=== PATIENT | female | born 2000 | race Caucasian/White ===

== ENCOUNTER 2018-01-17 19:07 | Outpatient (CLI) | payer OTHER, MEDICAID, SELFPAY ==
[2018-01-17 19:50] VITALS: BMI 54.1
[2018-01-17 20:04] LABS: Bacteria 0 SEEN /hpf (None Seen); Mucous, Urine 0 SEEN /hpf (<or=2+); Red Blood Cells-Urine 0 SEEN /hpf (0-5)
[2018-01-17 20:05] LABS: Color, Urine Yellow (Yellow); Glucose, Dipstick Normal (Normal); Ketone-Dipstick Negative (Negative); Leukocyte Esterase-Dipstick 100 /ul (Negative); Nitrite-Dipstick Negative (Negative); Occult Blood-Urine Negative /ul (Negative); Protein-Dipstick Negative (Negative); Specific Gravity, Urine 1.015 (1.002-1.030); Urine Bilirubin Dipstick Negative (Negative); Urine Clarity Sl. Cloudy (Clear); Urine Urobilinogen Normal (Normal); Urine pH 6.5 (5.0 - 8.0)
[2018-01-17 20:11] LABS: Squamous Epithelial Cells - UA 0-5 SEEN /hpf (5-10)
[2018-01-17 20:12] LABS: White Blood Cells 0-5 SEEN /hpf (0-5)
--- NOTE | 2018-01-17 21:28 | OB.TRI.NOTE ---
History of Present Illness Date of Service: 01/17/18 Was patient seen by the physician?: Yes Reason For Visit: CRAMPING IN BACK & FRONT Date of Service: 01/17/18 Final VIGNESH: 05/11/18 Final VIGNESH Source: US <20 weeks Gestational age: 23 Weeks and 5 Days History of Present Illness: Patient was working all day on feet at her job at [employer] today. Patient reports a hx of early miscarriage in the past and she felt nervous when she started to have irregular cramps/contractions. Patient unable to time the cramps; denies dysuria and pain. Patient denies any vaginal bleeding, denies any vaginal discharge. Reports +FM. Allergies amoxicillin [Amoxicillin] Allergy (Verified 06/10/17 00:59) Rash - Pertinent Past Medical History Pertinent Past Medical History: Noncontributory Physical Exam Vitals: See nursing notes for vital signs - VSS, afebrile UA unremarkable General: Alert, Oriented x3, No apparent distress HEENT: Atraumatic, Normocephalic. 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 Negative for: Vulvar lesions Estimated gestational size: Appropriate for gestational size Presentation: Cephalic Cervix Dilation (cm): 0 Station: -3 Effacement (%): 0 NST - FHR Rate Baby A Baseline: 150 Variability:: Moderate Accelerations:: 10 x 10 Decelerations:: None NST Reactive:: Appropriate for gestational age FHR Category:: Category I Uterine Activity:: None noted on tocometer or palpable Impression/Plan 17 y/o @ 23.5 wks, Contractions - PTL ruled out, Cramping likely d/t dehydration P: 1) Discharge to home 2) PTL precautions reviewed 3) Push PO fluids 4) F/u with OB providers as scheduled. Flower Parada APRN-JACK
--- NOTE | 2018-01-17 21:34 | OB.TRI.HP_ITS ---
History of Present Illness Date of Service: 01/17/18 Was patient seen by the physician?: Yes Reason For Visit: CRAMPING IN BACK & FRONT Date of Service: 01/17/18 Final VIGNESH: 05/11/18 Final VIGNESH Source: US <20 weeks Gestational age: 23 Weeks and 5 Days History of Present Illness: Patient was working all day on feet at her job at [employer] today. Patient reports a hx of early miscarriage in the past and she felt nervous when she started to have irregular cramps/contractions. Patient unable to time the cramps ; denies dysuria and pain. Patient denies any vaginal bleeding, denies any vaginal discharge. Reports +FM. Allergies amoxicillin [Amoxicillin] Allergy (Verified 06/10/17 00:59) Rash - Pertinent Past Medical History Pertinent Past Medical History: Noncontributory Physical Exam Vitals: See nursing notes for vital signs - VSS, afebrile UA unremarkable General: Alert, Oriented x3, No apparent distress HEENT: Atraumatic, Normocephalic. 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 Negative for: Vulvar lesions Estimated gestational size: Appropriate for gestational size Presentation: Cephalic Cervix Dilation (cm): 0 Station: -3 Effacement (%): 0 NST - FHR Rate Baby A Baseline: 150 Variability:: Moderate Accelerations:: 10 x 10 Decelerations:: None NST Reactive:: Appropriate for gestational age FHR Category:: Category I Uterine Activity:: None noted on tocometer or palpable Impression/Plan 17 y/o @ 23.5 wks, Contractions - PTL ruled out, Cramping likely d/t dehydration P: 1) Discharge to home 2) PTL precautions reviewed 3) Push PO fluids 4) F/u with OB providers as scheduled. Flower Parada APRN-JACK
== END 2018-01-17 20:24 | disposition home or self-care (01) ==
LOC: WPOUT 19:11 → WP 19:11
PROVIDERS: Family Provider Pediatrics; PCP Pediatrics; Visit Provider Obstetrics & Gynecology
DX: O26.892 Other specified pregnancy related conditions, second trimester (principal); Z3A.23 23 weeks gestation of pregnancy
CPT/HCPCS: 59050; 81001; 99218; G0378

== ENCOUNTER 2018-04-27 22:45 | Outpatient (CLI) | payer OTHER, MEDICAID, SELFPAY ==
[2018-04-27 23:20] VITALS: BMI 28.6
[2018-04-27 23:38] LABS: Color, Urine Straw (Yellow); Glucose, Dipstick Normal (Normal); Ketone-Dipstick Negative (Negative); Leukocyte Esterase-Dipstick 100 /ul (Negative); Nitrite-Dipstick Negative (Negative); Occult Blood-Urine Negative /ul (Negative); Protein-Dipstick 15 mg/dl (Negative); Specific Gravity, Urine 1.005 (1.002-1.030); Urine Bilirubin Dipstick Negative (Negative); Urine Clarity Clear (Clear); Urine Urobilinogen Normal (Normal)
--- NOTE | 2018-05-15 12:52 | OB.TRI.PN_ITS ---
Progress Notes Date of Service: 04/27/18 Progress Note: Diagnosis: Rule out labor. Patient's cervix was unchanged and she was discharged home as she was not in labor. NST reactive. Laboratory Studies: Laboratory Tests 04/27/18 Range/Units 23:15 Urine Color Straw (Yellow) Urine Clarity Clear (Clear) Urine pH 7.0 (5.0 - 8.0) Ur Specific Cooper 1.005 (1.002-1.030) Urine Protein 15 H (Negative) mg/dl Urine Glucose (UA) Normal (Normal) mg/dl Urine Ketones Negative (Negative) mg/dl Urine Occult Blood Negative (Negative) /ul Urine Nitrite Negative (Negative) Urine Bilirubin Negative (Negative) mg/dL Urine Urobilinogen Normal (Normal) mg/dl Ur Leukocyte Esterase 100 H (Negative) /ul
== END 2018-04-28 00:40 | disposition home or self-care (01) ==
LOC: WPOUT 23:15 → WP 23:16
PROVIDERS: Family Provider Pediatrics; PCP Pediatrics; Visit Provider Obstetrics & Gynecology
DX: Z34.90 Encounter for supervision of normal pregnancy, unspecified, unspecified trimester (principal)
CPT/HCPCS: 59025; 59050; 81002; 87086; 87088; 99218; G0378

== ENCOUNTER 2018-05-10 10:35 | Inpatient (IN) | payer OTHER, MEDICAID, SELFPAY ==
[2018-05-10 10:56] VITALS: BMI 29.0
[2018-05-10] MEDS: Ondansetron 4 MG/2 ML Vial IV (11:14)
[2018-05-10] MEDS: Nalbuphine 10 MG/ML Ampul IV (11:14)
[2018-05-10] MEDS: Lactated Ringers 1,000 ML 50 ML IV ×4 (11:16→22:10)
[2018-05-10 11:24] LABS: Hematocrit 33.2 % (37-47); Hemoglobin 10.3 g/dl (12.0-15.0); Mean Corpuscular Hgb 24.8 pg (27.0-32.0); Mean Corpuscular Volume 79.8 fL (81-99); Mean Platelet Vol. 11.8 fl (6.2-12.0); Platelet Count 202 K/mm3 (150-450); RBC Distribution Width CV 17.1 % (11.6-14.6); RBC Distribution Width SD 47.4 fl (35.1-43.9); Red Blood Count 4.16 M/mm3 (4.2-5.4); White Blood Count 8.7 K/mm3 (4.4-11.0)
[2018-05-10 11:25] LABS: Scan Indicated on CBC? Y/N NO
[2018-05-10 11:30] LABS: International Normalized Ratio 0.9; Prothrombin Time (Protime)PT. 12.5 SECONDS (11.7-14.9)
[2018-05-10 11:31] LABS: Partial Thromboplast Time 26.9 Seconds (24.1-36.2)
[2018-05-10] MEDS: fentaNYL-bupivacaine (epidural) 100 ML BAG EPIDURAL ×3 (12:00→22:05)
--- NOTE | 2018-05-10 12:34 | PCM.HP.OB ---
History Date of Admission: 05/10/18 Final VIGNESH: 05/11/18 Final VIGNESH Source: US <20 weeks Gestational age: 39 Weeks and 6 Days History of this : This is a 17 year-old, @ 39.6 weeks gestation with SROM at home- 9am on 05/10/18. pt reports contractions. pt offers no other concerns today. pt has had PNC with [facility] since early first trimester. Allergies amoxicillin [Amoxicillin] Allergy (Verified 01/18/18 08:07) Rash Home Medications: Home Medications Vits [Prenatabs FA] 1 tablet PO DAILY 05/10/18 Smoking Status: Former smoker Alcohol: None Number of Fetus(es): 1 Heart Tracin moderate variability, + accels no decels TOCO Analysis: q2-4min History Past Pregnancies: Past Pregnancies Delivery Date Name GA/Weeks Outcome Route Weight Gender Labor Length Anesthesia Delivery Location Provider FOB Labs: O-, hiv neg, hep b neg, rub imm, syphilis neg, GBS neg Expected Delivery Method: Spontaneous Vaginal Review of Systems Constitutional: Denies: Anorexia Cardiovascular: Denies: Chest Pain Respiratory: Denies: Cough Physical Exam General: Alert, Oriented x3 Abdomen: Soft, Non Tender, Gravid Neurological: Cranial nerves II-XII grossly intact GUN FERTILIZER: Normal external genitalia Estimated gestational size: Appropriate for gestational size Presentation: Cephalic Cervix Dilation (cm): 4.5 Station: -2 Effacement (%): 90 Assessment/Plan This is a 17 year-old, @ 39.6 wks, SROM at home in labor 1) admit to L&D 2) monitor FHR/TOCO 3) Epidural for pain mgmt 4) IFM/IUPC placed 5) Anticipate
--- NOTE | 2018-05-10 12:38 | HP.PCM_ITS ---
History Date of Admission: 05/10/18 Final VIGNESH: 05/11/18 Final VIGNESH Source: US <20 weeks Gestational age: 39 Weeks and 6 Days History of this : This is a 17 year-old, @ 39.6 weeks gestation with SROM at home- 9am on 05/10/18. pt reports contractions. pt offers no other concerns today. pt has had PNC with [facility] since early first trimester. Allergies amoxicillin [Amoxicillin] Allergy (Verified 01/18/18 08:07) Rash Home Medications: Home Medications Vits [Prenatabs FA] 1 tablet PO DAILY 05/10/18 Smoking Status: Former smoker Alcohol: None Number of Fetus(es): 1 Heart Tracin moderate variability, + accels no decels TOCO Analysis: q2-4min History Past Pregnancies: Past Pregnancies Delivery Date Name GA/Weeks Outcome Route Weight Gender Labor Length Anesthesia Delivery Location Provider FOB Labs: O-, hiv neg, hep b neg, rub imm, syphilis neg, GBS neg Expected Delivery Method: Spontaneous Vaginal Review of Systems Constitutional: Denies: Anorexia Cardiovascular: Denies: Chest Pain Respiratory: Denies: Cough Physical Exam General: Alert, Oriented x3 Abdomen: Soft, Non Tender, Gravid Neurological: Cranial nerves II-XII grossly intact 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
[2018-05-10] MEDS: Oxytocin 30 units/NS 500 ml 30 UNITS/500 ML IV.SOLN IV (16:42)
--- NOTE | 2018-05-10 17:48 | PCM.PN.BLA ---
Progress Note pt examined at bedside, AL/100/0 . continue pitocin at this time. Anticipate . pt is comfortable with epidural in place.
[2018-05-10] MEDS: Oxytocin 30 units/NS 500 ml 30 UNITS/500 ML IV.SOLN 334 UNITS IV (23:11)
--- NOTE | 2018-05-10 23:32 | PCM.OB.VAG ---
Vaginal Delivery Maternal Presentation: Active Labor, Spontaneous Rupture of Membranes Amniotic Membrane Rupture Type: Spontaneous at home Amniotic Fluid Description: Clear Final VIGNESH: 05/11/18 Gestational age: 39 Weeks and 6 Days Date of Procedure: 05/10/18 Pre-Operative Diagnosis: term gestation, spontaneous ROM, active labor Post-Operative Diagnosis: live male infant born Surgery/ Procedure Performed: Spontaneous Vaginal Delivery Type of Anesthesia: Epidural Description of Procedure: of live male born without complications. delivered with good maternal effort, gentle downward traction placed for delivery of anterior shoulder. Delayed cord clamping performed. Presentation: Vertex Placental Delivery Description: Spontaneous Placenta Disposition: [facility] Cord Vessel Description: 3 Vessels Nuchal Cord Compression: Without compression Cord Entanglement: None Drain: Post to straight drain Estimated Blood Loss: 400 A gender: Male (1 minute): 8 (5 minute): 9 Episiotomy Description: None Laceration: Vaginal Extension/lac - bilateral vaginal 2nd degree lacerations- repaired with 2-0 vicryl, 2nd degree Medications given after delivery: IV Pitocin Complications: None
[2018-05-10] MEDS: Oxytocin 30 units/NS 500 ml 30 UNITS/500 ML IV.SOLN 167 UNITS IV (23:45)
[2018-05-11] MEDS: Ibuprofen 600 MG Tablet PO ×3 (01:11→20:11)
[2018-05-11 04:00] VITALS: BP 111/68; PULSE 70; RESP 18; TEMP 36.2; O2SAT 98
--- NOTE | 2018-05-11 07:56 | PCM.PN.OB ---
Subjective: pt seen at bedside, doing well. pt still with stoll in place due to vaginal swelling. pt reports pain improvement but still sore. Mild lochia. breast feeding. denies other concerns at this time. - Physical Exam General: Alert, Oriented x3 Abdomen: Soft, Non Tender, Non-Distended, - - fundus firm Vital Signs Temp Pulse Resp BP Pulse Ox 97.1 F L 70 18 111/68 98 05/11/18 04:00 05/11/18 04:00 05/11/18 04:00 05/11/18 04:00 05/11/18 04:00 Oxygen Delivery Method Room Air Weight: 74.4 kg Body Mass Index (BMI) 29.0 Intake and Output for Last 24 Hours 05/09/18 05/10/18 05/11/18 23:59 23:59 23:59 Output Total 900 / 900 Balance -900 / -900 Laboratory Tests Past 24 Hrs 05/10/18 05/10/18 05/10/18 11:00 11:00 11:00 WBC 8.7 RBC 4.16 L Hgb 10.3 L Hct 33.2 L MCV 79.8 L MCH 24.8 L MCHC 31.0 L RDW 17.1 H RDW Differential 47.4 H Plt Count 202 MPV 11.8 PT 12.5 INR 0.9 APTT 26.9 Blood Type O NEGATIVE Antibody Screen NEGATIVE Medical Necessity - Tobacco Use Smoking Status: Former smoker Assessment/Plan PPD#1, doing well routine care pain mgmt dc stoll
--- NOTE | 2018-05-11 07:59 | PCM.DCVAG ---
Discharge Diet: No Restrictions Discharge Activity: Return to Normal Activity, May not drive while taking narcotic pain medications., May Shower May resume sexual activity in: 4-6 weeks Additional Activity Instructions:: Nothing in the vagina for 4-6 weeks. You may return to work/school in 6 weeks. Call your doctor if your incision/area has: Continuous Slow Oozing, Sudden Increased Bleeding, Increased Pain/ Swelling, Increased Redness, Foul Smelling Discharge Additional Instructions: If you experience any of the following, contact your healthcare provider. Bleeding that soaks a pad every hour for 2 hours Fever 100.4 or higher Unrelieved incision or abdominal pain Swelling, redness, discharge or bleeding from your incision or episiotomy site Your incision begins to separate Problems urinating (including inability to urinate or burning while urinating). Visual changes Severe headache Flu-like symptoms Pain or redness in one of both of your breasts Pain, warmth, tenderness or swelling in your legs, especially the calf area Frequent nausea and vomiting Symptoms of depression or anxiety If you experience any of the following, call 911 or go to the nearest Emergency Room. Chest pain Problems breathing Seizure activity Partial or complete paralysis of a body part, slurred speech, weakness or drooping of the face, or a sudden inability to walk or hold your balance Allergies/Adverse Reactions: Allergies amoxicillin [Amoxicillin] Allergy (Verified 01/18/18 08:07) Rash Medications to take at Discharge Vits [Prenatabs FA ] 1 tablet PO DAILY 05/10/18 Ibuprofen 600 mg PO 4X/DAY PRN PRN #30 tablet 05/11/18 The following prescriptions were given: Ibuprofen 600 mg PO 4X/DAY PRN PRN #30 tablet PRN Reason: Pain When: Call to make an appointment with your doctor in 6 weeks. If you had elevated Blood Pressure or 4th degree laceration you will need to be seen in 2 weeks. Primary Care Physician: Apryl lGez MD [Primary Care Provider] - Test Results: Test results from this visit will be discussed in further detail at your follow-up appointment, if applicable.
--- NOTE | 2018-05-11 08:00 | DCINST_ITS ---
Addendum entered and electronically signed by Flower Parada CNM 05/12/18 09:54: Patient can come to [facility] for 2 week check-up if needed - she can schedule with Veronica Parada CNM or Kashmir Adan CNM Original Note: Discharge Diet: No Restrictions Discharge Activity: Return to Normal Activity, May not drive while taking narcotic pain medications., May Shower May resume sexual activity in: 4-6 weeks Additional Activity Instructions:: Nothing in the vagina for 4-6 weeks. You may return to work/school in 6 weeks. Call your doctor if your incision/area has: Continuous Slow Oozing, Sudden Increased Bleeding, Increased Pain/ Swelling, Increased Redness, Foul Smelling Discharge Additional Instructions: If you experience any of the following, contact your healthcare provider. * Bleeding that soaks a pad every hour for 2 hours * Fever 100.4 or higher * Unrelieved incision or abdominal pain * Swelling, redness, discharge or bleeding from your incision or episiotomy site * Your incision begins to separate * Problems urinating (including inability to urinate or burning while urinating). * Visual changes * Severe headache * Flu-like symptoms * Pain or redness in one of both of your breasts * Pain, warmth, tenderness or swelling in your legs, especially the calf area * Frequent nausea and vomiting * Symptoms of depression or anxiety If you experience any of the following, call 911 or go to the nearest Emergency Room. * Chest pain * Problems breathing * Seizure activity * Partial or complete paralysis of a body part, slurred speech, weakness or drooping of the face, or a sudden inability to walk or hold your balance Allergies/Adverse Reactions: Allergies amoxicillin [Amoxicillin] Allergy (Verified 01/18/18 08:07) Rash Medications to take at Discharge Vits [Prenatabs FA ] 1 tablet PO DAILY 05/10/18 Ibuprofen 600 mg PO 4X/DAY PRN PRN #30 tablet 05/11/18 The following prescriptions were given: Ibuprofen 600 mg PO 4X/DAY PRN PRN #30 tablet PRN Reason: Pain When: Call to make an appointment with your doctor in 6 weeks. If you had elevated Blood Pressure or 4th degree laceration you will need to be seen in 2 weeks. Primary Care Physician: Apryl Glez MD [Primary Care Provider] - Test Results: Test results from this visit will be discussed in further detail at your follow- up appointment, if applicable.
[2018-05-11 14:00] VITALS: BP 125/72; PULSE 74; RESP 16; TEMP 36.4; O2SAT 98
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
[2018-05-11 20:13] VITALS: BP 119/71; PULSE 72; RESP 16; TEMP 36.8
--- NOTE | 2018-05-11 20:46 | NURSING ---
At 2009 as this RN entering room, yelling was audible through door. As soon as this RN opened door, yelling stopped. This RN asked patient and family if everything was okay and pt said that it was, that the visitor (Mika) was just getting on her nerves. This RN then medicated pt and began assessment. During this time, Mika was holding the infant and stated seriously if you want him to just disappear, I can make that happen. Both patient and support person said no. Mika then stated Not him (indicating baby) and indicated that he was talking about the father of the baby. Patient then stated just ignore him to this RN.
[2018-05-12 02:00] VITALS: BP 114/74; PULSE 61; RESP 16; TEMP 36.5
--- NOTE | 2018-05-12 10:02 | PN.OBGYN_ITS ---
Subjective: Patient is sitting up in bed at this time; denies any issues or complaints today. Patient denies issues with ambulation or urination. Patient denies SMITH, dizziness or scotoma. Patient bottlefeeding formula, stopped due to infant having difficulty with latching. Patient is satisfied with bottlefeeding method. Desiring discharge to home today. Objective: VSS, Afebrile Nipples without cracks or blisters Abdomen NT x 4 quadrants, FF midline 3FB below umbilicus +2/4 reflexes in LE, no edema, no calf tenderness in LE Scant rubra lochia, perineum well approximated - Physical Exam General: Alert, Oriented x3, Cooperative HEENT: Atraumatic, Normocephalic Neck: Supple Lungs: Normal air movement Cardiovascular: Regular rate, No murmurs Abdomen: Soft, Non Tender Extremities: No edema, Capillary Refill Less than 3 Seconds Skin: No rashes, No breakdown Musculoskeletal: No Tenderness to Palpation of Joints or Extremities Neurological: Cranial nerves II-XII grossly intact Psych/Mental Status: Normal Affect, Appropriate Vital Signs Temp Pulse Resp BP Pulse Ox 97.7 F L 61 16 114/74 98 05/12/18 02:00 05/12/18 02:00 05/12/18 02:00 05/12/18 02:00 05/11/18 14:00 Oxygen Delivery Method Room Air Weight: 164 lb 0.383 oz Body Mass Index (BMI) 29.0 Intake and Output for Last 24 Hours 05/10/18 05/11/18 05/12/18 23:59 23:59 23:59 Output Total 900 / 900 Balance -900 / -900 Medical Necessity - Tobacco Use Smoking Status: Former smoker Assessment/Plan 17 y/o now, s/p without complication, PPD #2, Normal PP Course P: 1) Discharge patient to home pending discharge 2) Anticipatory discharge teaching done 3) RTC at 2 and 6 week PP to [facility] Flower REINA
--- NOTE | 2018-05-15 09:53 | CASEMGMT ---
Social Work Labor and Delivery [employer] referral submitted via [facility]'s secure web based system for [employer]. -BIRGIT Mejia, ONLINE ACTIVIST
== END 2018-05-12 12:05 | disposition home or self-care (01) | DRG 807 ==
PROVIDERS: Admitting Provider Obstetrics & Gynecology; Family Provider Pediatrics; PCP Pediatrics; Referring Provider Obstetrics & Gynecology; Visit Provider Obstetrics & Gynecology
DX: O70.1 Second degree perineal laceration during delivery (principal); Z87.891 Personal history of nicotine dependence; Z3A.39 39 weeks gestation of pregnancy; Z37.0 Single live birth
CPT/HCPCS: 59025; 59050; 85027; 85461; 85610; 85730; 86850; 86900; 90384; 99218; J7120; G0378; J2405; J2790

== ENCOUNTER 2018-08-24 21:43 | Emergency (ER) | payer OTHER, SELFPAY ==
[2018-08-24 21:44] VITALS: BP 116/68; PULSE 83; RESP 16; TEMP 36.3; O2SAT 99; BMI 24.9
[2018-08-24 21:53] VITALS: BP 116/61; PULSE 66; RESP 16; O2SAT 100
--- NOTE | 2018-08-24 22:06 | EKG12_ITS ---
Test Reason : CHEST PAIN Blood Pressure : / mmHG Vent. Rate : 068 BPM Atrial Rate : 068 BPM P-R Int : 126 ms QRS Dur : 092 ms QT Int : 402 ms P-R-T Axes : 043 069 044 degrees QTc Int : 427 ms Normal sinus rhythm Normal ECG Confirmed by JOSE JOVEL MD ([id number]), deputy editor in chief ANIBAL JORGE ([id number] on 08/29/2018 1:27:39 PM Referred By: SHAISTA Confirmed By:JOSE JOVEL MD
[2018-08-24] MEDS: Ketorolac 30 MG/ML Syringe IV (22:16)
[2018-08-24 22:17] LABS: Absolute Lymphocyte Count 2.32 X10^3/ul (0.83-4.51); Absolute Neutrophil Count 2.5 X10^3/uL (2.0-7.7); Basophil# 0.01 X10^3/uL; Basophil% 0.2 % (0-1); Eosinophil# 0.03 X10^3/uL; Eosinophils% 0.6 % (0-5); Hemoglobin 11.3 g/dl (12.0-15.0); Lymphocyte # 2.32 X10^3/ul (4.0); Lymphocyte % 44.1 % (19-41); Mean Corp Hgb Conc 31.4 g/gl (32-36); Mean Corpuscular Hgb 24.9 pg (27.0-32.0); Mean Corpuscular Volume 79.5 fL (81-99); Mean Platelet Vol. 9.6 fl (6.2-12.0); Monocyte# 0.43 X10^3/uL; Monocyte% 8.2 % (0-10); Neutrophil # 2.47 X10^3/uL (2.7-7.7); Neutrophil % 46.9 % (47-70); Platelet Count 295 K/mm3 (150-450); RBC Distribution Width CV 14.5 % (11.6-14.6); RBC Distribution Width SD 41.8 fl (35.1-43.9); Red Blood Count 4.53 M/mm3 (4.2-5.4); White Blood Count 5.3 K/mm3 (4.4-11.0)
[2018-08-24 22:18] VITALS: O2SAT 100
[2018-08-24 22:24] LABS: POSITIVE COUNT NO; POSITIVE DIFFERENTIAL NO; POSITIVE MORPHOLOGY NO
[2018-08-24 22:29] LABS: Anion Gap 8 (5-15); BUN 5 mg/dL (7-18); BUN/Creat Ratio 6.5 RATIO (10-20); Calcium,Total 8.6 mg/dL (8.5-10.1); Chloride 107 mmol/L (98-107); Creatinine, Serum 0.77 mg/dL (0.55-1.02); D-Dimer Quantitative (DVT/PE) 0.31 FEU/ug/m (0.27-0.49); EST Glomerular Filtration Rate 101 mL/min (>60); Est Glom Filt Rate - Afr Amer 122 mL/min (>60); Estimated Creatinine Clearance 101.48 ml/min; Glucose 86 mg/dL (74-106); Potassium 3.6 mmol/L (3.5-5.1); Sodium Level 141 mmol/L (136-145)
[2018-08-24 22:35] LABS: Pregnancy, Serum, hCG Quali. NEGATIVE Negative (0-9 Nonpreg)
--- NOTE | 2018-08-24 22:51 | RAD_ITS ---
STUDY: X-RAY CHEST REASON FOR EXAM: Female, 17 years old. Cough, shortness of breath and chest pain for one day TECHNIQUE: 2 views COMPARISON: None. FINDINGS: Negative for pneumothorax, pneumomediastinum or subcutaneous emphysema. Generalized hyperexpansion without consolidation, focal atelectasis or pleural effusion. There is no demonstrated pleural abnormality. Normal size heart. Normal mediastinum and guillermina. Normal visualized pulmonary arteries. Normal visualized aortic arch and descending thoracic aorta. Normal visualized thoracic spine. Normal visualized ribs, clavicles, and shoulders. There is no demonstrated abnormality of the visualized soft tissue structures of the upper abdomen. RAD/Chest PA and Lateral IMPRESSION: Hyperexpansion without other acute cardiopulmonary findings. Electronically Signed: Ele Lovett MD at 23:41 EST , Service support ,
--- NOTE | 2018-08-24 23:43 | ED.VISSUMM ---
- ER Visit Summary Date of Service: 08/24/18 Chief Complaint: Chest pain History of Present Illness: The patient is a 17 F sudden chest pain at work midsternal stress 6 PM. Pain with deep breath. No cough. No recent travel, surgeries, or immobilizations. No history of PE or DVT. Patient does take oral contraceptives. No tobacco history. No family history of sudden . Patient no past medical history. No previous similar symptoms in the past. Denies any recent illness. No other complaints. Physical Examination: General: Alert and oriented ?3, no acute distress HEENT: Normocephalic, atraumatic. Moist mucosa membranes Neck: supple, nontender. Cardiovascular: Regular rate and rhythm, no murmurs Respiratory: Normal breath sounds, symmetric, no distress Abdomen: Soft, nontender, nondistended Extremities: Nontender, no edema, pulses intact ?4 Neuro: no focal neurological deficits. Test Results: EKG sinus rate of 68, no ST or T wave changes. Hemoglobin 11.3. Creatinine 0.77. HCG negative. D-dimer 0.31. Emergency Department Course and Treatment: Patient atypical symptoms EKG normal. Patient's PERC criteria was negative, however she complained of pain with deep breath. Low risk Wells criteria, d-dimer obtained also negative. Given Toradol improvement of symptoms chest x-ray was negative. Discussed using Motrin as needed. Follow-up with PCP. Signs and symptoms discussed return. All questions were answered. Treatment Plan: [] Disposition: Discharge Impression: 1. Atypical chest pain This note was generated with [employer] dictation software. It may contain incorrect words, spelling, and punctuation that were not noted in review of the chart prior to signing ED Disposition - Plan for ED Patient: Disposition: Home or Assisted Living Diagnosis: Atypical chest pain Instructions: ED Chest Pain Atypical Unkn Cause Referrals: Apryl Glez MD [Primary Care Provider] - 3-5 Days if not improving
--- NOTE | 2018-08-24 23:47 | ED.DCSUM_ITS ---
- ER Visit Summary Date of Service: 08/24/18 Chief Complaint: Chest pain History of Present Illness: The patient is a 17 F sudden chest pain at work midsternal stress 6 PM. Pain with deep breath. No cough. No recent travel, surgeries, or immobilizations. No history of PE or DVT. Patient does take oral contraceptives. No tobacco history. No family history of sudden . Patient no past medical history. No previous similar symptoms in the past. Denies any recent illness. No other complaints. Physical Examination: General: Alert and oriented ?3, no acute distress HEENT: Normocephalic, atraumatic. Moist mucosa membranes Neck: supple, nontender. Cardiovascular: Regular rate and rhythm, no murmurs Respiratory: Normal breath sounds, symmetric, no distress Abdomen: Soft, nontender, nondistended Extremities: Nontender, no edema, pulses intact ?4 Neuro: no focal neurological deficits. Test Results: EKG sinus rate of 68, no ST or T wave changes. Hemoglobin 11.3. Creatinine 0.77. HCG negative. D-dimer 0.31. Emergency Department Course and Treatment: Patient atypical symptoms EKG normal. Patient's PERC criteria was negative, however she complained of pain with deep breath. Low risk Wells criteria, d-dimer obtained also negative. Given Toradol improvement of symptoms chest x-ray was negative. Discussed using Motrin as needed. Follow-up with PCP. Signs and symptoms discussed return. All q uestions were answered. Treatment Plan: [] Disposition: Discharge Impression: 1. Atypical chest pain This note was generated with [employer] dictation software. It may contain incorrect words, spelling, and punctuation that were not noted in review of the chart prior to signing ED Disposition - Plan for ED Patient: Disposition: Home or Assisted Living Diagnosis: Atypical chest pain Instructions: ED Chest Pain Atypical Unkn Cause Referrals: Apryl Glez MD [Primary Care Provider] - 3-5 Days if not improving
[2018-08-24 23:56] VITALS: BP 116/75; PULSE 72; RESP 16; O2SAT 96
== END 2018-08-24 23:59 | disposition home or self-care (01) ==
PROVIDERS: Emergency Provider Emergency Medicine; Family Provider Pediatrics; PCP Pediatrics
DX: R07.89 Other chest pain (principal); R06.00 Dyspnea, unspecified; K21.9 Gastro-esophageal reflux disease without esophagitis
CPT/HCPCS: 71046; 80048; 84703; 85025; 85379; 93005; 96374; 99284; A4216

== ENCOUNTER 2019-02-05 23:57 | Emergency (ER) | payer OTHER, MEDICAID, SELFPAY ==
[2019-02-05 23:58] VITALS: BP 124/61; PULSE 70; RESP 16; TEMP 36.5; O2SAT 100; BMI 26.6
--- NOTE | 2019-02-06 00:08 | ED.VISSUMM ---
- ER Visit Summary Date of Service: 02/06/19 Chief Complaint: Right leg pain History of Present Illness: The patient is a 18 F who complains of right leg pain for a couple of weeks. She describes this as aching. No exacerbating or relieving factors. She is tried anti-inflammatories without relief. No fall. No injury. She also complains of some lower back pain. No paresthesias. No history of back surgery no urinary retention or fecal incontinence. Physical Examination: Afebrile vitals normal No distress Right lower extremity no edema no tenderness brisk capillary refill normal sensation to light touch 5 out of 5 dorsiflexion, plantarflexion, extensor hallucis longus Negative straight leg raise Back nontender to palpation Test Results: Not indicated Emergency Department Course and Treatment: History and exam most consistent with a lumbar radiculopathy. We will treat with a prednisone burst and she was advised to continue supportive care. She was advised to follow-up as an outpatient. She understands to return for new or worsening symptoms. Treatment Plan: [] Disposition: Discharge Impression: Sciatica This note was generated with [employer] dictation software. It may contain incorrect words, spelling, and punctuation that were not noted in review of the chart prior to signing ED Disposition - Plan for ED Patient: Referrals: Apryl Glez MD [Primary Care Provider] -
--- NOTE | 2019-02-06 00:12 | ED.DEP ---
ED Disposition - Plan for ED Patient: Instructions: Understanding Sciatica Prescriptions: predniSONE tablet 60 mg PO DAILY #15 tab Prescription Printed Referrals: Apryl Glez MD [Primary Care Provider] -
[2019-02-06 00:25] VITALS: BP 124/61; PULSE 70; RESP 16; O2SAT 100
== END 2019-02-06 00:25 | disposition home or self-care (01) ==
LOC: ED 02-06 00:30
PROVIDERS: Emergency Provider Emergency Medicine; Family Provider Pediatrics; PCP Pediatrics
DX: M54.41 Lumbago with sciatica, right side (principal)
CPT/HCPCS: 99282

== ENCOUNTER 2020-05-07 21:45 | Emergency (ER) | payer OTHER, MEDICAID, SELFPAY ==
[2020-05-07 21:45] VITALS: BP 141/90; PULSE 76; RESP 16; TEMP 36.4; O2SAT 100; BMI 26.4
[2020-05-07] MEDS: Meclizine HCl 25 MG Tablet PO (22:57)
[2020-05-07] MEDS: Ondansetron ODT 4 MG Tablet PO (22:57)
--- NOTE | 2020-05-08 00:33 | ED.VIS.GEN ---
History of Present Illness Chief Complaint: Dizziness Informant: Patient Onset: Today Context: Sudden Onset Timing: Intermittent Narrative: Patient is a 19-year-old female with history of ADD presenting with dizziness and vomiting. Patient states she got off work this evening and around 7 PM the suddenly the room started spinning and she felt nauseous and that she had to vomit. States her legs felt like Jell-O. Should have some palpitations with this. She states she might of had something similar as a child but cannot recall exactly. She currently feels better but still feels a little dizzy. She rubs her dizziness as room spinning sensation. She denies associated chest pain, shortness of breath or cough. She denies any or GI symptoms besides the nausea. She denies any recent fever or chills. She denies any sick contacts. No other complaints at this time. No recent cold, nasal congestion. No ringing in her ears. Past Medical History - Allergies and Home Meds Allergies/Adverse Reactions: Allergies amoxicillin [Amoxicillin] Allergy (Verified 02/06/19 00:21) Rash Primary Care Physician: Sonia Patel PA [Primary Care Provider] - Past Medical History: - - ADD Surgical History: no surgical history Smoking Status: Former smoker Review of Systems General: Reports: - - Dizziness. Denies: Chills, Fever, Sweats Eyes: Denies: Visual changes - bilaterally, Diplopia ENT: Denies: Bilateral ear pain, Rhinorrhea, Sore throat Cardiovascular: Reports: Palpitations. Denies: Chest pain Respiratory: Denies: Dyspnea, Cough, Dyspnea on exertion Gastrointestinal: Reports: Nausea. Denies: Abdominal pain, Vomiting, Diarrhea, Melena, Hematochezia Genitourinary: Denies: Dysuria, Hematuria, Frequency Musculoskeletal: Denies: Back pain, Extremity Pain Skin: Denies: Rash, Wounds Neurological: Denies: Headache, Weakness, Numbness Physical Exam Vital Signs/Narrative: Vital Signs Temp Pulse Resp BP Pulse Ox 05/07/20 21:45 97.5 F L 76 16 141/90 H 100 Inital Vital Signs reviewed: Yes General: Well nourished, Well developed, No Acute Distress Head: Normocephalic, Atraumatic Eyes: Perrl, EOMI, - - Fatiguing horizontal rightward nystagmus exacerbated by Matt-Hallpike maneuver ENT: Moist mucous membranes, No rhinorrhea, TM's clear Neck: Supple, Nontender Cardiovascular: Regular rate, Regular rhythm, No murmurs Respiratory: No distress, CTA bilaterally, Chest nontender Abdomen: Soft, Nontender, Nondistended, Normal bowel sounds Back: Nontender, Normal Inspection Extremities: Nontender, No edema Skin: Normal color, No rash Neurological: Alert, Oriented x3, Cranial nerves II-XII grossly intact, Normal Strength, Normal Sensation, - - Normal coordination, normal [id number]/heel [id number]. Normal gait. Negative for: Confused, Weakness, Left side facial droop, Right side facial droop Psychological: Normal affect, Normal Mood Diagnostic/Tx/Re-eval - Rhythm Strip Rhythm Strip: Sinus Rhythm Rate: 63 Ectopy: None - EKG Initial EKG Interpretation: Sinus Rhythm, - - Normal sinus rhythm rate of 63 Normal intervals Normal axis Normal ST segments - Medical Decision Making Patient evaluated for sudden onset of room spinning sensation with associated nausea and vomiting. Her symptoms are started to improve upon arrival to the ER. Patient's symptoms are reproduced with [place]-Hallpike maneuver and are consistent with peripheral vertigo. Patient was given meclizine and Zofran in the ER with improvement of her symptoms. She has a normal neurologic exam I do not suspect a central process. I do not think lab work or imaging of the head is indicated at this time. Patient symptoms are mild currently. EKG was done per protocol however I do not suspect any cardiogenic cause of her symptoms. It was normal. Patient is instructed on the Catia maneuver to perform at home. She is instructed to follow-up with her primary care doctor especially her symptoms persist that she might require vestibular therapy. She is discharged home with a prescription for Zofran and meclizine for symptomatic treatment. ED Disposition - Plan for ED Patient: Disposition: Home or Assisted Living Diagnosis: Vertigo Instructions: ED BPV Vertigo Prescriptions: Meclizine HCl [Antivert] 25 mg PO 4X/DAY PRN PRN #20 tab PRN Reason: Dizziness Transmission Status: Received by [id number] Ondansetron [Zofran Odt] 4 mg PO Q8H PRN PRN #10 tab PRN Reason: Nausea Transmission Status: Received by [facility] Referrals: Sonia Patel PA [Primary Care Provider] -
[2020-05-08 00:56] VITALS: BP 132/89; PULSE 74; RESP 16; O2SAT 98
== END 2020-05-08 00:57 | disposition home or self-care (01) ==
PROVIDERS: Emergency Provider Emergency Medicine; PCP Physician Assistant
DX: R42 Dizziness and giddiness (principal); R11.2 Nausea with vomiting, unspecified; F98.8 Other specified behavioral and emotional disorders with onset usually occurring in childhood and adolescence; Z79.899 Other long term (current) drug therapy; Z87.891 Personal history of nicotine dependence
CPT/HCPCS: 99281; 99284

== ENCOUNTER 2020-12-30 14:59 | Emergency (ER) | payer OTHER, MEDICAID, SELFPAY ==
[2020-11-18 10:21] VITALS: BMI 26.4
[2020-12-30 15:00] VITALS: BP 122/68; PULSE 63; RESP 18; TEMP 36.4; O2SAT 96; BMI 28.3
[2020-12-30] MEDS: Diphth,Pertuss(Acell),Tet Vac 0.5 ML Vial IM (15:35)
--- NOTE | 2020-12-30 16:07 | EX.ED.UPPERE ---
HPI History of Present Illness Chief Complaint: Laceration Informant: patient Occured/Mechanism Mechanism/Context: Yes injury Comment: Patient was using a knife and accidentally cut herself Onset/Context/Timing Onset: Hours (1) Context: Sudden Onset Timing: Continuous Quality of Pain: Sharp Location: Left thumb Worsened by: Movement Relieved by: Rest Associated Symptoms Associated Symptoms: Negative for Parasthesia and Weakness Narrative Narrative: Patient presents with a laceration to her left thumb that occurred approximate 1 hour prior to arrival. Patient was using a knife when she accidentally slipped and cut her left thumb. Patient is right-hand dominant. Patient states the bleeding is worse with any movement. Patient describes her pain as sharp. Patient denies any paresthesias or weakness. Patient is unsure of her last tetanus. [facility] Medical History (Updated 12/30/20 @ 16:[address] Lawrence Mesa DO) Depression Heart murmur History of miscarriage Home Medications NK 12/30/20 [History Last Taken Unknown] Allergy/AdvReac Type Severity Reaction Status Date / Time amoxicillin [Amoxicillin] Allergy Rash Verified 11/16/20 09:52 Social History Smoking Status: Former smoker ROS ROS ED Constitutional Constitutional ED: Denies chills or fever(s) Eyes Eyes: Denies blurry vision or change in vision ENT ENT ED: Denies rhinorrhea or sore throat Cardiovascular Cardiovascular: Denies chest pain or palpitations Respiratory/Chest Respiratory/Chest: Denies cough or dyspnea Gastrointestinal Gastrointestinal: Denies nausea or vomiting Genitourinary Genitourinary ED: Denies dysuria or hematuria Musculoskeletal Musculoskeletal: Denies back pain or neck pain Integumentary Denies abscess or rash Neurologic Neurologic: Denies headache(s) or weakness Allergic/Immunologic Allergic/Immunologic ED: Denies mouth swelling or urticaria EXAM Physical Exam Const Vital Signs: 12/30/20 15:00 Temperature 97.6 F L Temperature Source Temporal Pulse Rate 63 Respiratory Rate 18 Blood Pressure 122/68 H Blood Pressure Mean 86 Pulse Ox 96 Oxygen Delivery Method Room Air Positive well nourished and well developed General Appearance ED: well developed HEENT Reports moist mucous membranes Neck full ROM and supple Extremity Extremity Narrative: There is a 1 cm full-thickness curvilinear laceration over the radial aspect of the distal phalanx of the left thumb near the IP joint. There is mild gapping of the wound margins. There are no foreign bodies noted. There is full range of motion. Strength is 5/5 in flexion extension of the IP and MP joints. Sensation was intact to light touch in all digits. Capillary refill was less than 2 seconds in all digits. Neuro oriented x3, CN's II-XII intact bilaterally, moves all extremities, no focal motor deficits and no sensory deficits noted Sensorium / Orientation: alert Psych mental status grossly normal MDM MDM MDM Narrative Medical decision making narrative: The wound was cleaned and closed with 2 simple interrupted #4-0 Ethilon sutures under sterile technique. Patient tolerated the procedure well. Patient was instructed to follow-up with her primary care physician in 5 days for wound recheck and suture removal. Patient understood and was agreeable with the plan. All questions were answered. Procedures Lacerations Left thumb: Length: 1 cm Depth: Skin Shape: Linear Prep: Sterile Conditions and Chlorhexadine Laceration repair: Digital block and Irrigated Irrigated (ml): 60 Number of Sutures/[place]: 2 Suture Information: Ethilon, Simple and 4-0 Discharge Plan Triage Chief Complaint: Laceration ED Provider: Lawrence Mesa Dx/Rx/DC Orders Clinical Impression: Laceration of skin of left thumb Instructions: ED Laceration, Hand: All Closures Prescriptions: No Action NK RF: 0 Primary Care Provider: Sonia Patel Referrals: Sonia Patel PA [Primary Care Provider] - 5 Days for suture removal Disposition Disposition: Home, self care Discharge Date/Time: 12/30/20 16:26
== END 2020-12-30 16:26 | disposition home or self-care (01) ==
PROVIDERS: Emergency Provider Emergency Medicine; PCP Physician Assistant
DX: S61.012A Laceration without foreign body of left thumb without damage to nail, initial encounter (principal); Z23 Encounter for immunization; W26.0XXA Contact with knife, initial encounter; Y93.9 Activity, unspecified; Y92.9 Unspecified place or not applicable; Y99.9 Unspecified external cause status; Z87.891 Personal history of nicotine dependence
CPT/HCPCS: 12001; 90471; 90715; 99283

== ENCOUNTER 2022-06-18 19:06 | Emergency (ER) | payer MEDICAID, SELFPAY ==
[2022-06-18 19:07] VITALS: BP 108/74; PULSE 90; RESP 16; TEMP 36.4; O2SAT 100; BMI 25.9
[2022-06-18 21:32] VITALS: PULSE 75; RESP 18
[2022-06-18] MEDS: Ipratropium/Albuterol Sulfate 3 ML AMPUL.NEB INHALATION (21:32)
--- NOTE | 2022-06-18 21:49 | RAD_ITS ---
STUDY: X-RAY CHEST REASON FOR EXAM: Female, 21 years old. Cough TECHNIQUE: Frontal and lateral views of the chest. COMPARISON: Chest x-ray August 24, 2018 FINDINGS: The lungs are clear and expanded. There is no demonstrated pleural abnormality. Normal size heart. Normal mediastinum and guillermina. Normal visualized pulmonary arteries. Normal visualized aortic arch and descending thoracic aorta. Mild dextroconvex scoliosis. Normal visualized ribs, clavicles, and shoulders. There is no demonstrated abnormality of the visualized soft tissue structures of the upper abdomen. RAD/Chest PA and Lateral IMPRESSION: No acute disease Electronically Signed: Emmett Balderas MD at 22:37 EST ,
--- NOTE | 2022-06-18 22:36 | EDS_ITS ---
HPI HPI - URI History of Present Illness Chief Complaint: Cough Informant: patient Onset/Context/Timing Onset: Month(s) (1) Context: Gradual Onset Timing: Continuous Quality: Frontal and maxillary sinuses Location: Pressure Worsened by: - (Laying flat) Relieved by: - (Nothing) Associated Symptoms Associated Symptoms: Positive for Nasal Congestion, Headache, Sinus Pressure, Chest Pain (With coughing) and Productive Cough; Negative for Nausea, Vomiting, Diarrhea or Shortness of Breath Narrative Narrative: Patient presents with cough that has been constant for the past month. Patient states it is gradually gotten worse. Patient states it is worse whenever she lies down. Patient mitts to some sinus pressure and nasal congestion. Patient also admits to mild headache. Patient states she occasionally coughs up some sputum but does not know what color it is. Patient admits to some pain in her chest with coughing. Patient admits to some dysuria but denies any hematuria or frequency. Patient denies any fevers or chills. ROS ROS ED Constitutional Constitutional ED: Denies chills or fever(s) Eyes Eyes: Denies blurry vision or change in vision ENT ENT ED: Reports rhinorrhea; Denies sore throat Cardiovascular Cardiovascular: Reports chest pain; Denies palpitations Respiratory/Chest Respiratory/Chest: Reports cough; Denies dyspnea Gastrointestinal Gastrointestinal: Denies nausea or vomiting Genitourinary Genitourinary ED: Reports dysuria; Denies hematuria Musculoskeletal Musculoskeletal: Reports neck pain; Denies back pain Integumentary Denies abscess or rash Neurologic Neurologic: Reports headache(s); Denies weakness Allergic/Immunologic Allergic/Immunologic ED: Denies mouth swelling or urticaria [facility] Medical History (Updated 06/18/22 @ 23:[address] Lawrence Mesa, ) Depression Clay's disease Heart murmur History of miscarriage PCOS (polycystic ovarian syndrome) Home Medications benzonatate 100 mg capsule 200 mg PO TID PRN cough #20 caps 06/18/22 [Rx Last Taken Unknown] fluoxetine 40 mg capsule (Prozac) 40 mg PO DAILY 06/18/22 [History Last Taken Unknown] hydroxyzine HCl 50 mg tablet 50 mg PO QHS 06/18/22 [History Last Taken Unknown] Allergy/AdvReac Type Severity Reaction Status Date / Time amoxicillin [Amoxicillin] Allergy Rash Verified 06/18/22 21:04 Surgical History no surgical history no surgical history Social History Smoking Status: Former smoker EXAM Physical Exam Const Vital Signs: 06/18/22 19:07 06/18/22 19:07 06/18/22 21:03 Temperature 97.5 F L 97.5 F L Temperature Source Temporal Temporal Pulse Rate 90 90 Respiratory Rate 16 16 Respiratory Effort Short of Breath Blood Pressure 108/74 108/74 Blood Pressure Mean 85 85 Pulse Ox 100 100 Oxygen Delivery Method Room Air Room Air 06/18/22 21:32 Temperature Temperature Source Pulse Rate 75 Respiratory Rate 18 Respiratory Effort Blood Pressure Blood Pressure Mean Pulse Ox Oxygen Delivery Method Positive well nourished and well developed General Appearance ED: well developed and NAD HEENT Reports moist mucous membranes Neck supple, no meningeal signs and no JVD Resp normal respiratory effort and clear to auscultation bilaterally Auscultation: diminished lung sounds diffuse Cardio regular rate, regular rhythm and no murmurs GI normal to inspection, nondistended, normoactive bowel sounds and non-tender Palpation: soft Extremity normal to inspection General Extremety ED: Negative for edema or tenderness General Extremity: Negative for edema Neuro oriented x3, CN's II-XII intact bilaterally and no sensory deficits noted Sensorium / Orientation: alert Motor Exam: strength 5/5 throughout Psych mental status grossly normal Skin no rashes or lesions noted MDM MDM MDM Narrative Medical decision making narrative: Patient was given a DuoNeb aerosol here. PA and lateral chest x-ray was obtained. There are 2 views. On my interpretation, lung jaime are clear. There is normal cardiac silhouette. Bony thorax is normal. There is no acute process noted. Radiologist also interpreted the x-ray and agrees. COVID-19 rapid antigen was obtained and was negative. Influenza A and influenza B antigens were obtained and were negative. Urinalysis was obtained. Leukocyte esterase was 500. There were 5-10 white blood cells but 50-100 squamous epithelial cells. There is no bacteria seen. Patient was advised of her findings. Patient was given a dose of Tessalon here. Patient was given a prescription for Tessalon [place]. Patient was instructed to follow-up with her primary care physician in 5 to 7 days. Patient understood and was agreeable with the plan. All questions were answered. Lab Data Attestation: I reviewed the patient's lab results. Labs: Laboratory Results - last 24 hr 06/18/22 23:05 Urine Color Yellow Urine Clarity Clear Urine pH 7.0 Ur Specific [place] 1.015 Urine Protein Negative Urine Glucose (UA) Normal Urine Ketones Negative Urine Occult Blood Negative Urine Nitrite Negative Urine Bilirubin Negative Urine Urobilinogen Normal Ur Leukocyte Esterase 500 H Urine RBC 0 SEEN Urine WBC 5-10 SEEN Ur Squamous Epith Cells 50-100 SEEN Urine Bacteria 0 SEEN Urine Mucus 0 SEEN Radiography Diagnostic Testing: Clinical Impression(s) from Imaging Studies Chest X-Ray 06/18/22 21:49 IMPRESSION: No acute disease Electronically Signed: Emmett Balderas MD at 22:37 EST Reading Location ID and State: [facility] / [place] , Service support , Discharge Plan Triage Chief Complaint: Cough ED Provider: Lawrence Mesa Dx/Rx/DC Orders Clinical Impression: Viral upper respiratory tract infection with cough Instructions: ED URI, Viral, No Abx (Adult) Prescriptions: Changed benzonatate 100 mg capsule 200 mg PO TID PRN (Reason: cough) Qty: 20 0RF No Action fluoxetine [Prozac] 40 mg Capsule 40 mg PO DAILY hydroxyzine HCl 50 mg Tablet 50 mg PO QHS Primary Care Provider: Sonia Patel Referrals: Sonia Patel PA [Primary Care Provider] - 5-7 Days Disposition Disposition: Home, Self Care
[2022-06-18 23:16] LABS: Bacteria 0 SEEN /hpf (None Seen); Mucous, Urine 0 SEEN /hpf (<or=2+); Red Blood Cells-Urine 0 SEEN /hpf (0-5)
[2022-06-18] MEDS: Benzonatate 100 MG Capsule 200 MG PO (23:16)
[2022-06-18 23:17] LABS: Color, Urine Yellow (Yellow); Glucose, Dipstick Normal (Normal); Ketone-Dipstick Negative (Negative); Leukocyte Esterase-Dipstick 500 /ul (Negative); Nitrite-Dipstick Negative (Negative); Occult Blood-Urine Negative /ul (Negative); Protein-Dipstick Negative (Negative); Specific Gravity, Urine 1.015 (1.002-1.030); Urine Bilirubin Dipstick Negative (Negative); Urine Clarity Clear (Clear); Urine Urobilinogen Normal (Normal)
[2022-06-18 23:22] LABS: Squamous Epithelial Cells - UA 50-100 SEEN /hpf (5-10); White Blood Cells 5-10 SEEN /hpf (0-5)
[2022-06-18 23:45] VITALS: PULSE 18
== END 2022-06-18 23:45 | disposition home or self-care (01) ==
PROVIDERS: Emergency Provider Emergency Medicine; PCP Physician Assistant; Visit Provider Emergency Medicine
DX: J06.9 Acute upper respiratory infection, unspecified (principal); F32.A Depression, unspecified; Z79.899 Other long term (current) drug therapy; Z87.891 Personal history of nicotine dependence
CPT/HCPCS: 71046; 81001; 87428; 94640; 99283

== ENCOUNTER 2022-07-01 16:07 | Emergency (ER) | payer MEDICAID, SELFPAY ==
[2022-07-01 16:08] VITALS: BP 111/73; PULSE 90; RESP 16; TEMP 36; O2SAT 99; BMI 25.1
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
--- NOTE | 2022-07-01 17:15 | RAD_ITS ---
INDICATION: trauma EXAMINATION/TECHNIQUE: X-RAY - XR Spine Lumbar 2 or 3 Views COMPARISON: None. FINDINGS: VERTEBRAE: Mild levoscoliosis or splinting secondary to muscle spasm. Preserved vertebral body height. No fracture. No spondylolisthesis. Preservation of the normal lumbar lordosis. No significant facet arthropathy. DISCS: Disc spaces are maintained. INCLUDED ABDOMEN: Included bowel gas pattern is non-obstructive. RAD/Lumbar Spine 2 or 3 Views IMPRESSION: Mild levoscoliosis or splinting secondary to muscle spasm.. No acute fracture or other significant abnormality Electronically Signed: Issa Muro MD at 17:38 EST ,
--- NOTE | 2022-07-01 17:15 | RAD_ITS ---
INDICATION: trauma EXAMINATION/TECHNIQUE: X-RAY - XR Chest 2 Views COMPARISON: June 18, 2022 FINDINGS: LINES/DEVICES: None. LUNGS: No consolidation, edema or effusion. No pneumothorax. MEDIASTINUM AND CARDIOVASCULAR STRUCTURES: Cardiac silhouette not enlarged. Central airways and mediastinal contour are unremarkable. BONES AND SOFT TISSUES: Unremarkable. RAD/Chest PA and Lateral IMPRESSION: No radiographic evidence of acute cardiopulmonary disease. Electronically Signed: Issa Muro MD at 17:37 EST ,
[2022-07-01 18:20] VITALS: BP 115/69; PULSE 58; RESP 16; O2SAT 100
== END 2022-07-01 18:29 | disposition home or self-care (01) ==
PROVIDERS: Emergency Provider Emergency Medicine; PCP Physician Assistant; Visit Provider Emergency Medicine
DX: S16.1XXA Strain of muscle, fascia and tendon at neck level, initial encounter (principal); M54.9 Dorsalgia, unspecified; Z87.891 Personal history of nicotine dependence; V43.62XA Car passenger injured in collision with other type car in traffic accident, initial encounter
CPT/HCPCS: 70450; 71046; 72100; 72125; 99282

== ENCOUNTER 2024-08-16 20:44 | Emergency (ER) | payer OTHER, SELFPAY ==
[2024-08-16 20:44] VITALS: BP 133/84; PULSE 98; RESP 17; TEMP 36.6; O2SAT 98
--- NOTE | 2024-08-16 20:50 | EDS_ITS ---
HPI HPI - Fall History of Present Illness Chief Complaint: Fall PFSH PFS Medical History Depression Clay's disease Heart murmur History of miscarriage PCOS (polycystic ovarian syndrome) Home Medications ?Medication ?Instructions ?Recorded ?Last Taken ?Type benzonatate 100 mg capsule 200 mg (2 x 100 mg) PO TID PRN 06/18/22 Unknown Rx cough #20 caps fluoxetine 40 mg capsule (Prozac) 40 mg PO DAILY 06/18/22 Unknown History hydroxyzine HCl 50 mg tablet 50 mg PO QHS 06/18/22 Unknown History Allergy/AdvReac Type Severity Reaction Status Date / Time amoxicillin (Amoxicillin) Allergy Rash Verified 08/16/24 20:45 Social History Smoking Status: Former smoker EXAM Physical Exam Const Vital Signs: 08/16/24 20:44 08/16/24 21:53 Temperature 97.9 F 97.9 F Temperature Source Oral Pulse Rate 98 72 Respiratory Rate 17 18 Blood Pressure 133/84 H 130/72 H Blood Pressure Mean 100 91 Pulse Ox 98 98 Oxygen Delivery Method Room Air MDM MDM MDM Narrative Medical decision making narrative: HISTORY OF PRESENT ILLNESS: 23-year-old female presents with right hip pain. Notes she is at work she st epped on water she fell and hurt her right hip. Denies head trauma loss of consciousness. REVIEW OF SYSTEMS: Pertinent positives: Hip pain Pertinent negatives: Headache, neck pain, back pain, right knee pain and right ankle pain PHYSICAL EXAM: Nursing triage notes reviewed, Vital signs reviewed Primary Survey Airway: Intact Breathing: Bilateral breath sounds Circulation: Palpable bilateral femorals, Palpable bilateral radial, Palpable bilateral DP and Palpable bilateral PT Disability / Spine precautions GCS Score: Eye Openin Verbal Response: 5 Motor Response: 6 Secondary Survey Constitutional: Please see MDM Head: Atraumatic, Midface stable, NO jaw malocclusion, No Cephalohematoma, and No Lacerations noted Eye: Pupils equal round and reactive to light, Extraocular muscles intact and No periorbital ecchymosis or stepoff, no evidence of entrapment ENT: Oropharynx clear, no lacerations, no hemotympanum, no raccoon eyes or gage sign Cervical spine / Neck: No cervical spine bony tenderness, crepitance, or stepoff deformity Trachea midline Lungs: Clear to auscultation, No asymmetric rise and No crepitus, no flail chest Cardiac: Regular rate and rhythm and No murmurs Abdomen: Soft, Nontender and No rebound Pelvis: Pelvis stable to compression : No evidence of genital injury Back: No midline bony tenderness to thoracic/lumbar/sacral spines Neuro: Intact sensation L1-S1 dermatomal distributions. Intact 5/5 strength in hip flexion (T12-L3). Knee extension (L2-L4). Ankle dorsiflexion (L4-L5). Ankle plantar flexion (S1). Great toe extension (L5). 2+ patellar and Achilles DTRs. Extremities: NO gross Deformities, intact range of motion hip flexion extension, internal/external rotation although slight limited by pain. Intact quadricep tendon complex noted on the right. Psych: Normal affect Nursing triage notes reviewed, Vital signs reviewed MEDICAL DECISION MAKING: Chief Complaint: Right hip pain MDM Narrative: Patient was initially hemodynamically stable, afebrile and nontoxic-appearing. Exam with TTP over right hip. Patient's gait was antalgic although she could bear weight. She had full but painful range of motion right hip. Compartments are soft. Quad tendon complex was intact. Right lower extremity is warm and well-perfused. There is no obvious leg length discrepancy noted initial exam. I considered the following differential diagnosis: Hip fracture, dislocation, contusion I obtained an x-ray to rule out fracture dislocation. Treated with ibuprofen ALL IMAGES (IF OBTAINED) HAVE BEEN PERSONALLY REVIEWED AND INTERPRETED BY MYSELF. X-ray of the right hip and pelvis was read, interpreted and reviewed by myself and showed no evidence of obvious fracture dislocation The patient is likely suffering from a hip contusion. Will give RICE and NSAID instructions. Strict return precautions were discussed. The patient and/or family, caregivers express understanding. The patient and/or family, caregivers agrees with the plan. Shared decision making: I will have a discussion with the patient and or visitors regarding risk/benefits of further testing or admission. They will be made aware of of the risk/benefits inherent in this decision they will be given the opportunity to voice understanding. Total critical care time today provided was at least 0 minutes. This excludes separately billable procedures. Critical care time (if documented) is secondary to the patient having high probability of clinically significant/life threatening deterioration in the patient's condition which required my urgent intervention. Impression: 1. Acute hip pain 2. Acute hip contusion Dispo: Discharged This note was generated with [employer] dictation software. It may contain incorrect words, spelling, and punctuation that were not noted in review of the chart prior to signing. Radiography Diagnostic Testing: Clinical Impression(s) from Imaging Studies Hip/Pelvis X-Ray 08/16/24 21:14 IMPRESSION: Normal x-ray examination of the pelvis and hip. Electronically Signed: Issa Muro MD at 21:39 EST Reading Location ID and State: [address] [place] [address] Tel , Service support , Discharge Plan Triage Chief Complaint: Fall ED Provider: Jaime Concepcion Dx/Rx/DC Orders Instructions: ED Hip Contusion Prescriptions: No Action fluoxetine [Prozac] 40 mg Capsule 40 mg PO DAILY hydroxyzine HCl 50 mg Tablet 50 mg PO QHS benzonatate 100 mg capsule 200 mg PO TID PRN (Reason: cough) Qty: 20 0RF Stand Alone Forms: ED Work / School Excuse Primary Care Provider: Care Physician,Mayra Primary Referrals: Sonia Patel PA [Non-Staff] - Activity Restrictions/Additional Instructions: Thank you for trusting us with your care today! Your x-ray was negative for acute fractures or dislocations of your hip. I suspect you some from a bruised hip or hip contusion. Please take Tylenol (2 pills, 650 mg), ibuprofen (2 pills, 400 mg) every 6 hours as needed for pain and fever control. Please return to the emergency department if your symptoms change or worsen. Please follow with your primary care physician for further outpatient evaluation and management. Print Language: Czech Disposition Disposition: Home, Self Care Discharge Date/Time: 08/16/24 21:57
[2024-08-16] MEDS: Ibuprofen 200 MG Tablet 400 MG PO (21:13)
--- NOTE | 2024-08-16 21:14 | RAD_ITS ---
STUDY: X-RAY - PELVIS AND RIGHT HIP REASON FOR EXAM: Female, 23 years old. right hip pain after fall TECHNIQUE: 3 views of the pelvis and hip. COMPARISON: None. FINDINGS: There is a non-specific bowel gas pattern. Normal visualized soft tissue structures. Normal bilateral iliac wings, sacroiliac joints and visualized sacrum. Normal bilateral superior and inferior pubic rami. Normal pubic symphysis. Normal bilateral ischial tuberosities. Normal visualized femoral head. Normal acetabulum. Normal hip joint. RAD/HIP, UNI W/ Pelvis 2-3 Views IMPRESSION: Normal x-ray examination of the pelvis and hip. Electronically Signed: Issa Muro MD at 21:39 EST ,
[2024-08-16 21:53] VITALS: BP 130/72; PULSE 72; RESP 18; TEMP 36.6; O2SAT 98
== END 2024-08-16 21:57 | disposition home or self-care (01) ==
LOC: ED 21:52
PROVIDERS: Emergency Provider Emergency Medicine; Referring Provider Emergency Medicine; Visit Provider Emergency Medicine
DX: M25.551 Pain in right hip (principal); S70.01XA Contusion of right hip, initial encounter; W19.XXXA Unspecified fall, initial encounter; Z87.891 Personal history of nicotine dependence
CPT/HCPCS: 73502; 99282

== ENCOUNTER 2025-06-03 20:23 | Inpatient (IN) | payer OTHER, SELFPAY ==
[2025-06-03 20:23] VITALS: BP 137/86; PULSE 88; RESP 18; TEMP 36.8; O2SAT 99; BMI 29.0
--- NOTE | 2025-06-03 21:42 | EKG12_ITS ---
Test Reason : DYSRHYTHMIA Blood Pressure : */* mmHG Vent. Rate : 79 BPM Atrial Rate : 79 BPM P-R Int : 122 ms QRS Dur : 90 ms QT Int : 368 ms P-R-T Axes : 47 59 42 degrees QTcB Int : 421 ms Normal sinus rhythm RSR' or QR pattern in V1 suggests right ventricular conduction delay Borderline ECG Confirmed by Valentin Ascencio ([id number]), field map editor WILIAN CAMARENA ([id number]) on 06/04/2025 10:36:04 AM Referred By: Confirmed By: Valentin Ascencio
--- NOTE | 2025-06-03 21:50 | CM.ED ---
Social Work Patient presented to ED for admission to [facility] program for alcohol detox. Treatment navigator notified of admission. Patricia Hudson MSW, PAID SEARCH MANAGER
--- OUTSIDE RECORDS SUMMARY | 2025-06-03 22:12 | XMS RPT_ITS | CCD ---
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 bodyaches x 1 day Primary Visit Diagnosis:Sore throat [J02.9] Other Visit Diagnoses:Strep throat [J02.0] Acute cough [R05.1] Order(s):STREP A MOLECULAR (POC) [6236412] Order #: [id number]. #:[id number] XR CHEST 2V FRONTAL/LAT [[id number]] Order #: [id number] FUTURE azithromycin (ZITHROMAX) 500 mg tabletTake 1 tablet by mouth once daily for 5 days.Disp: 5 tabletRfl: 0 Prescriptions as of 05/23/2024 - azithromycin (ZITHROMAX) 500 mg tablet Take 1 tablet by mouth once daily for 5 days. - FLUoxetine (PROZAC) 40 mg capsule Take 2 capsules by mouth once daily. - omeprazole (PRILOSEC) 40 mg capsule Take 1 capsule by mouth once daily. 30 minutes before a meal Problem List As Of Date 05/22/2024 Noted Resolved Unplanned [Z34.90] 09/18/2017 06/22/2018 History of depression (more content not included)... Normal [facility] STREP A MOLECULAR (POC)on Interpretation and review of laboratory results Abnormal [facility] Procedural Control Valid [facility] Strep A (POCT) Positive Abnormal Negative [facility] XR CHEST 2V FRONTAL/LATon XR CHEST 2V FRONTAL/LAT * * *Final Report* * * DATE OF EXAM: May 22 2024 6:38PM WOX 5291 - XR CHEST 2V FRONTAL/LAT / PROCEDURE REASON: Acute cough * * * * Physician Interpretation * * * * EXAMINATION: CHEST RADIOGRAPH (2 VIEW FRONTAL and LATERAL) CLINICAL HISTORY: Acute cough MQ: XC2_6 EXAM DATE/TIME: 05/22/2024 6:38 PM COMPARISON: No relevant prior studies available. RESULT: Lines, tubes, and devices: None. Lungs and pleura: No consolidation. No lung mass. No pleural effusion. No pneumothorax. Cardiomediastinal silhouette: Normal cardiomediastinal silhouette. Bones and soft tissues: Unremarkable. IMPRESSION: No acute radiographic abnormality. Contracts Analyst: LORETO Transcribe Date/Time: May 22 2024 8:14P Dictated by : CATIA ROBERTO MD This examination was interpreted and the report reviewed and electronically signed by: CATIA ROBERTO MD on May 22 2024 8:14PM EST [id number] Normal [facility] XR Chest PA and Lateralon IMPRESSION: No acute radiographic abnormality. Contracts Analyst: LORETO Transcribe Date/Time: May 22 2024 8:14P Dictated by : CATIA ROBERTO MD This examination was interpreted and the report reviewed and electronically signed by: CATIA ROBERTO MD on May 22 2024 8:14PM EST DIVISION OF RADIOLOGY * * *Final Report* * * DATE OF EXAM: May 22 2024 6:38PM WOX 5291 - XR CHEST 2V FRONTAL/LAT / PROCEDURE REASON: Acute cough * * * * Physician Interpretation * * * * EXAMINATION: CHEST RADIOGRAPH (2 VIEW FRONTAL & LATERAL) CLINICAL HISTORY: Acute cough MQ: XC2_6 EXAM DATE/TIME: 05/22/2024 6:38 PM COMPARISON: No relevant prior studies available. RESULT: Lines, tubes, and devices: None. Lungs and pleura: No consolidation. No lung mass. No pleural effusion. No pneumothorax. Cardiomediastinal silhouette: Normal cardiomediastinal silhouette. Bones and soft tissues: Unremarkable. DIVISION OF RADIOLOGY Provider, [facility] - 05/22/2024 * * *Final Report* * * DATE OF EXAM: May 22 2024 6:38PM WOX 5291 - XR CHEST 2V FRONTAL/LAT / PROCEDURE REASON: Acute cough * * * * Physician Interpretation * * * * EXAMINATION: CHEST RADIOGRAPH (2 VIEW FRONTAL & LATERAL) CLINICAL HISTORY: Acute cough MQ: XC2_6 EXAM DATE/TIME: 05/22/2024 6:38 PM COMPARISON: No relevant prior studies available. RESULT: Lines, tubes, and devices: None. Lungs and pleura: No consolidation. No lung mass. No pleural effusion. No pneumothorax. Cardiomediastinal silhouette: Normal cardiomediastinal silhouette. Bones and soft tissues: Unremarkable. IMPRESSION IMPRESSION: No acute radiographic abnormality. Contracts Analyst: LORETO Transcribe Date/Time: May 22 2024 8:14P Dictated by : CATIA ROBERTO MD This examination was interpreted and the report reviewed and electronically signed by: CATIA ROBERTO MD on May 22 2024 8:14PM EST [facility] Radiology Study observation (narrative) [facility] XR Chest PA and LateralOrder ed By: [facility] Provider on 05-22-2024 [facility] Basophil percentageon 2021 Basophil percentage 5-10 SEEN /hpf 0-5 [facility] Work Phone: Bilirubin Test strip Ql (U)o n 06-18-2022 Bilirubin Ql (U) Negative Negative [facility] Work Phone: Ketones Test strip Ql (U)on 06-18-2022 Ketones Ql (U) Negative Negative [facility] Work Phone: Mucus LM Ql (Urine sed)on Mucus Ql (Urine sed) 0 SEEN /hpf [facility] Work Phone: Nitrite Test strip Ql (U)on 06-18-2022 Nitrite Ql (U) Negative Negative [facility] Work Phone: Protein Test strip Ql (U)on 06-18-2022 Protein Ql (U) Negative Negative [facility] Work Phone: Squamous epithelial cells de tection in urine sediment by light microscopyon 06-18-2022 Epithelial cells.squamous LM Ql (Urine sed) 50-100 SEEN /hpf 5-10 [facility] Work Phone: Urine blood detectionon 05-25 RBC Ql (U) Negative Negative [facility] Work Phone: RBC Ql (U) 0 SEEN /hpf 0-5 [facility] Work Phone: Urine clarityon 06-18-2022 Clarity (U) Clear Clear [facility] Work Phone: Urine color determinationon 06-18-2022 Color (U) Yellow Yellow [facility] Work Phone: Urine glucose detectionon Glucose Ql (U) Normal mg/dl Normal [facility] Work Phone: Urine leukocyte esterase det ection by dipstickon 06-18-2022 Leukocyte esterase Test strip Ql (U) 500 /ul Negative [facility] Work Phone: Urine pHon 06-18-2022 pH (U) 7.0 [pH] 5.0 - 8.0 [facility] Work Phone: Urine sediment bacteria coun t by microscopy (number/high power field)on 06-18-2022 Bacteria LM.HPF (Urine sed) [#/Area] 0 /[HPF] None Seen [facility] Work Phone: Urine specific gravity measu rementon 06-18-2022 Specific gravity (U) [Rel density] 1.015 1.002-1.030 [facility] Work Phone: Urobilinogen Auto test strip Ql (U)on 06-18-2022 Urobilinogen Ql (U) Normal mg/dl Normal [facility] Work Phone: Progress Noteon 08-10-2018 [employer] Authentication Interface Message Text Patient ID: Cheikh Parks is a 17 y.o. female. Her chief complaint(s) include: 17 YEAR WELL CHILD Assessment 1. Routine general medical examination at a health care facility 2. Need for vaccination Plan Cheikh was seen today for 17 year well child. Diagnoses and all orders for this visit: Routine general medical examination at a health care facility - Behavioral/Emotional Assessment w Score - PHQ-9 Need for vaccination - Influenza Vaccine 0.5 mL >= 3 yr Quadrivalent (PF) - meningococcal group B vaccine (BEXSERO) Return in about 1 year (around 08/10/2019) for well check. Subjective HPI Comments: Pt has a 4 month old son from a previous relationship. She identifies as diaz now but previously identified as bisexual. She lives with her gf and her Mom, getting their own place soon. 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 Hx of depression/anxiety/cut ting in the past. Denies any issues now. She is unaccompanied. 17 YEAR WELL CHILD Education: She Attends vocational school and is doing well. Eating: Cheikh eats regular meals including fruits and vegetables, eats breakfast, limits fast food, drinks non-sweetened liquids and has a calcium source. Activities & Sports: She has a job. Drugs: She does not use tobacco, does not use drugs and does not use alcohol. Safety: She has a violence free home and uses seat belt. Sex: Cheikh is sexually active. STD screening offered and declined. Her sexual partners are females. She identifies as homosexual. Typically, she uses oral contraceptives as her current contraceptive method. She has previously been : yes She has not had an STD. Suicidality: She has ways to cope with stress and displays self-confidence. She has no depression, has no anxiety, has no suicidal ideation and has no homicidal ideation. Menstruation Menstruation: regular periods Output Urine and Stool Pattern: Urine and Stool Pattern: Normal stool pattern, normal urine pattern. Sleep Sleeping Difficulty: no difficulty sleeping Hours of sleep at a time: 8 Screenings Life events information was reviewed-no referral needed Hearing Vision Concerns: The caregiver has no concerns about the patient's hearing. The caregiver has no concerns about the patient's vision. Primary Care Review of Systems Objective Vital Signs 08/10/18 1424 BP: 124/59 Pulse: 82 Weight: 64.5 kg Height: 159 cm Body mass index is 25.51 kg/m . Physical Exam Constitutional: She appears well. She is active. No distress. HENT: Head: Atraumatic. Right Ear: Tympanic membrane and external ear normal. Left Ear: Tympanic membrane and external ear normal. Nose: Nose normal. Mouth/Throat: Mucous membranes are moist. Dentition is normal. Oropharynx is clear. Eyes: Conjunctivae and EOM are normal. No strabismus. Pupils are equal, round, and reactive to light. Neck: Normal range of motion. Neck supple. Thyroid normal. No neck adenopathy. Cardiovascular: Normal rate, regular rhythm, S1 normal and S2 normal. Pulses are palpable. Heart murmur not heard. Pulmonary/Chest: Breath sounds normal. No respiratory distress. Exhibits no deformity. Abdominal: Soft. Bowel sounds are normal. She exhibits no distension and no mass. There is no hepatosplenomegaly. There is no tenderness. Musculoskeletal: Normal range of motion. Back: She exhibits no scoliosis. Neurological: She is alert. She has normal strength. She exhibits normal muscle tone. Gait normal. Skin: No rash noted. No pallor. Skin is warm. Vitals reviewed: Blood pressure 124/59, pulse 82, height 159 cm, weight 64.5 kg, last menstrual period 07/29/2018. Normal [facility] Advocate Authentication Interface Message Text Cheikh Parks is a 17 y.o. female patient. Behavioral/Emotional Assessment w Score - PHQ-9 Performed by: Kamila Funk APRN-CNP Authorized by: Kamila Funk APRN-CNP PHQ-9 See PHQ9 Flowsheet Feeling down, depressed, irritable or hopeless: Several days Little interest or pleasure in doing things: Several days Trouble falling or staying sleep, or sleeping too much: Not at all Poor appetite, weight loss, or overeating: Not at all Feeling tired or having little energy: Several days Feeling bad about yourself - or feeling that you are a failure, or have let yourself or your family down: Not at all Trouble concentrating on things, like school work, reading or watching TV: Not at all Moving or speaking so slowly that other people could have noticed. Or the opposite - being so fidgety or restless that you were moving around a lot more than usual: Several days Thoughts that you would be better off , or of hurting yourself in some way: Not at all In the past year have you felt depressed or sad most days, even if you felt OK sometimes?: No If you are experiencing any of the problems on this form, how difficult have these problems made it for you to do your work, take care of things at home or get along with other people?: Not difficult at all Has there been a time in the past month when you have had serious thoughts about ending your life?: No Have you ever, in your whole life, tried to kill yourself or made a suicide attempt?: Yes PHQ-9 Total Score: 4 See Scanned Document Electronically signed by: JUNG Quinones Normal [facility] Emergency Room Note on 04-17-2017 [facility] Note Normal [facility] ([place] Patient Summary Documentson 04-17-2017 Patient Summary Documents Normal [facility] [place] [facility] Note on 01-20-2017 [facility] Note Normal [facility] ED Note-Provideron 7 ED Note-Provider Normal [facility] Patient Summary Documentson 01-18-2017 Patient Summary Documents Normal [facility] test (u)on 017 test (u) Negative Normal [facility] Comment on above: Order Comment: CBN Result Comment: HCG not detected. Performed By: #### P REGU ####[address] [address] Urinalysis (AO)on 01-18-2017 Erythrocytes (RBC) 0-5 Abnormal NONE SEEN [facility] Comment on above: Order Comment: CBN Performed By: #### U AO ####[address] [address] Squamous Epi 0-5 Abnormal NONE SEEN [facility] Comment on above: Order Comment: CBN Performed By: #### U AO ####[address] [address] WBC (Leukocytes) LOADED Abnormal NONE SEEN [facility] Comment on above: Order Comment: CBN Performed By: #### U AO ####[address] [address] Bilirubin (total) Negative Normal NEGATIVE [facility] Comment on above: Order Comment: CBN Performed By: #### U AO ####[address] [address] Glucose mass conc Negative Normal NEGATIVE [facility] Comment on above: Order Comment: CBN Performed By: #### U AO ####[address] [address] Hemoglobin mass conc (Bld) TRACE-INTACT Abnormal NEG - TRACE [facility] Comment on above: Order Comment: CBN Performed By: #### U AO ####[address] [address] pH of blood 5.5 [pH] Normal 5.0 - 8.0 [facility] Comment on above: Order Comment: CBN Performed By: #### U AO ####[place] [address] [address] Protein Negative Normal NEG - TRACE [facility] Comment on above: Order Comment: CBN Performed By: #### U AO ####[place] [address] [address] Urine, appearance CLEAR Normal CLEAR [facility] Comment on above: Order Comment: CBN Performed By: #### U AO ####[place] [id number] Urine, color YELLOW Normal [facility] Comment on above: Order Comment: CBN Performed By: #### U AO ####[place] [address] Urine, ketones presence Negative Normal NEGATIVE [facility] Comment on above: Order Comment: CBN Performed By: #### U AO ####[place] [address] Urine, nitrite presence Negative Normal NEGATIVE [facility] Comment on above: Order Comment: CBN Performed By: #### U AO ####[place] [address] Urine, specific gravity <=1.005 Abnormal 1.015-1.025 [facility] Comment on above: Order Comment: CBN Performed By: #### U AO ####[place] [address] Urine, urobilinogen 0.2 {Jayson'U}/dL Normal NORMAL [facility] Comment on above: Order Comment: CBN Performed By: #### U AO ####[place] [id number] WBC (Leukocytes) MODERATE Abnormal NEGATIVE [facility] Comment on above: Order Comment: CBN Performed By: #### U AO ####[place] [address] [address] Specimen type (u) VOID Normal [facility] Comment on above: Order Comment: CBN Performed By: #### U AO ####[place] [address] [address] Influenza virus A and B and SARS-CoV-2 (COVID-19) Ag panel - Upper respiratory specim SARS-CoV-2 (COVID-19) RNA JENNIFER+probe Ql (Resp) [facility] Work Phone: No Panel Information SARS-CoV-2 & FLU Antigen (Rapid) [facility] Work Phone: Vital Signs Date Time Vital Sign Value Performing Clinician Facility 10-20-2024 09:07-0400 Body mass index (BMI) [Ratio] 30.86 kg/m2 Krislyn Aberegg PA Work Phone: [facility] 10-20-2024 09:07-0400 Body temperature 98.6 [degF] Krislyn Aberegg PA Work Phone: [facility] 10-20-2024 09:07-0400 Body weight 81 kg Krislyn Aberegg PA Work Phone: [facility] 10-20-2024 09:07-0400 Diastolic blood pressure 72 mm[Hg] Krislyn Aberegg PA Work Phone: [facility] 10-20-2024 09:07-0400 Heart rate 110 /min Krislyn Aberegg PA Work Phone: [facility] 10-20-2024 09:07-0400 Respiratory rate 18 /min Krislyn Aberegg PA Work Phone: [facility] 10-20-2024 09:07-0400 SaO2% (BldA) [Mass fraction] 98 % Krislyn Aberegg PA Work Phone: [facility] 10-20-2024 09:07-0400 Systolic blood pressure 124 mm[Hg] Krislyn Aberegg PA Work Phone: [facility] 05-22-2024 18:14-0400 Body mass index (BMI) [Ratio] 30.06 kg/m2 Maria Teresa Bardales APRN.COOKY PACKER Work Phone: [facility] 05-22-2024 18:14-0400 Body temperature 100.8 [degF] Maria Teresa Bardales APRN.COOKY PACKER Work Phone: [facility] 05-22-2024 18:14-0400 Body weight 78.9 kg Maria Teresa Bardales APRN.COOKY PACKER Work Phone: [facility] 05-22-2024 18:14-0400 Diastolic blood pressure 78 mm[Hg] Maria Teresa Bardales APRN.COOKY PACKER Work Phone: [facility] 05-22-2024 18:14-0400 Heart rate 84 /min Maria Teresa Bardales APRN.COOKY PACKER Work Phone: [facility] 05-22-2024 18:14-0400 Respiratory rate 18 /min Maria Teresa Bardales APRN.COOKY PACKER Work Phone: [facility] 05-22-2024 18:14-0400 SaO2% (BldA) [Mass fraction] 98 % Maria Teresa Bardales APRN.COOKY PACKER Work Phone: [facility] 05-22-2024 18:14-0400 Systolic blood pressure 124 mm[Hg] Maria Teresa Bardales APRN.COOKY PACKER Work Phone: [facility] 07-01-2022 18:20-0500 Diastolic blood pressure 69 mm[Hg] [facility] Work Phone: 07-01-2022 18:20-0500 Heart rate 58 /min [facility] Work Phone: 07-01-2022 18:20-0500 Respiratory rate 16 /min [facility] Work Phone: 07-01-2022 18:20-0500 SaO2% (BldA) [Mass fraction] 100 % [facility] Work Phone: 07-01-2022 18:20-0500 Systolic blood pressure 115 mm[Hg] [facility] Work Phone: 07-01-2022 16:08-0500 Body height 162.56 cm [facility] Work Phone: 07-01-2022 16:08-0500 Body mass index (BMI) [Ratio] 25.1 kg/m2 [facility] Work Phone: 07-01-2022 16:08-0500 Body temperature 96.8 [degF] [facility] Work Phone: 07-01-2022 16:08-0500 Body weight 66.4 kg [facility] Work Phone: 06-18-2022 23:45-0500 Heart rate 18 /min [facility] Work Phone: 06-18-2022 21:32-0500 Respiratory rate 18 /min [facility] Work Phone: 06-18-2022 19:07-0500 Body height 162.56 cm [facility] Work Phone: 06-18-2022 19:07-0500 Body mass index (BMI) [Ratio] 25.9 kg/m2 [facility] Work Phone: 06-18-2022 19:07-0500 Body temperature 97.5 [degF] [facility] Work Phone: 06-18-2022 19:07-0500 Body weight 68.6 kg [facility] Work Phone: 06-18-2022 19:07-0500 Diastolic blood pressure 74 mm[Hg] [facility] Work Phone: 06-18-2022 19:07-0500 SaO2% (BldA) [Mass fraction] 100 % [facility] Work Phone: 06-18-2022 19:07-0500 Systolic blood pressure 108 mm[Hg] [facility] Work Phone: Encounters Encounter Date Encounter Type Care Provider Facility Start: 03-27-2025 End: 03-27-2025 ambulatory [facility] Facility:[facility] Start: 03-19-2025 End: 03-19-2025 ambulatory [facility] Facility:[facility] Start: 10-21-2024 End: 12-21-2024 Follow-up encounter Brandon Josephrafa EDMONDSONCOOKY PACKER Work Phone: [facility] Start: 10-20-2024 End: 10-20-2024 ambulatory [facility] Facility:[facility] Start: 10-20-2024 End: 10-20-2024 Patient encounter procedure Rayna GALEANO Work Phone: [facility] Comment on above: URI, acute (Primary Dx) Start: 08-16-2024 End: 08-16-2024 Emergency department patient visit Jaime Concepcion Facility:[facility] Start: 05-23-2024 End: 05-23-2024 Telephone encounter Josselin Donnelly APRN.COOKY PACKER Work Phone: [facility] Comment on above: Results Start: 05-22-2024 End: 05-22-2024 Subsequent hospital visit by physician [facility] Work Phone: Radiology Comment on above: Acute cough [R05.1] Start: 05-22-2024 End: 05-22-2024 ambulatory [facility] Facility:[facility] Start: 05-22-2024 End: 05-22-2024 Patient encounter procedure Maria Teresa Bardales APRN.COOKY PACKER Work Phone: [facility] Comment on above: Sore throat (Primary Dx); Strep throat; Acute cough Start: 07-01-2022 End: 07-01-2022 Emergency department patient visit [facility] Start: 06-18-2022 End: 06-18-2022 Emergency department patient visit [facility] Start: 01-14-2022 End: 01-14-2022 ambulatory Alia Ibarra MD Work Phone: OB/Gynecology Comment on above: DUB Start: 01-14-2022 End: 01-14-2022 Patient encounter procedure Alia Ibarra MD Work Phone: [facility] Start: 01-12-2022 Telephone encounter Bhavya vásquez FIGURE SKATER.CNM Work Phone: OB/Gynecology Comment on above: Results Start: 01-07-2022 Telephone encounter Kary yao FIGURE SKATER.CNM Work Phone: OB/Gynecology Comment on above: Results Start: 08-10-2018 End: 08-10-2018 Patient encounter procedure KAMILA Paras [facility] Start: 09-18-2017 End: 06-22-2018 Patient requested procedure Maria Teresa Bardales APRN.COOKY PACKER Work Phone: [facility] Start: 04-17-2017 End: 04-17-2017 Emergency department patient visit KWAME AgustinRosa MARIA Facility: Start: 01-18-2017 End: 01-18-2017 Emergency department patient visit DENNIS Haley KAUFMANEY Facility:[facility] Procedures Date Procedure Procedure Detail Performing Clinician Start: 05-22-2024 Radiologic exam ches t 2 views Maria Teresa Bardales APRN.COOKY PACKER Work Phone: Start: 05-22-2024 STREP A MOLECULAR (POC) Bhavya Garcia APRN.COOKY PACKER Work Phone: Start: 07-01-2022 Plain chest X-ray Start: 07-01-2022 X-ray of lumbar spin e, two or three views Start: 07-01-2022 CT cervical spine wi thout contrast Start: 07-01-2022 CT of head without contrast Start: 06-18-2022 Plain chest X-ray SARS-CoV-2 & FLU Ant igen (Rapid) Plan of Treatment Date Care Activity Detail Author Start: 08-05-2031 Urine microalbumin profile DTaP,Tdap,Td Vaccine (11 - Td or Tdap) [facility] Start: 04-13-2028 Urine microalbumin profile DTAP,TDAP,TD (9 - Td or Tdap) [facility] Start: 01-05-2025 PAP TESTING PAP TESTING [facility] Start: 01-05-2025 Screening for malign ant neoplasm of cervix Cervical Cancer Screening [facility] Start: 03-24-2024 Covid-19 Vaccine ( season) Covid-19 Vaccine ( season) [facility] Start: 03-24-2024 Influenza vaccination Influenza Vacc ine (#1) [facility] Start: 01-05-2023 CHLAMYDIA SCREENING (18-24) CHLAMYDIA SCREENING (18-24) [facility] Start: 01-05-2023 GC (GONORRHEA) SCREE ANA (18-24) GC (GONORRHEA) SCREENING (18-24) [facility] Start: 2019 PAP TESTING PAP TESTING [facility] Start: 09-07-2018 MENINGOCOCCAL B: Consider based on risk (2 of 2 - Risk Bexsero 2-dose series) MENINGOCOCCAL B: Consider based on risk (2 of 2 - Risk Bexsero 2-dose series) [facility] Start: 2016 Anxiety Screening Anxiety Screening [facility] Start: 2016 Depression Screening Depression Scre ening [facility] Start: 2016 HEPATITIS C SCREENING HEPATITIS C SC RU [facility] Start: 2012 PEDS TO ADULT TRANSI TION ANNUAL ASSESSMENT PEDS TO ADULT TRANSITION ANNUAL ASSESSMENT [facility] Start: 2010 Adult depression screening assessment DEPRESSION SCREENING [facility] Start: 2010 PEDS TO ADULT TRANSI TION INITIAL DISCUSSION PEDS TO ADULT TRANSITION INITIAL DISCUSSION [facility] COVID & INFLUENZA A/ B & RSV PCR, ROUTINE COVID & INFLUENZA A/B & RSV PCR, ROUTINE Microbiology Routine URI, acute Ordered: 10/20/2024 [facility] Work Phone: Comment on above: Ordered: 10/20/2024 Patient Education [facility] Work Phone: Patient referral [facility] Work Phone: [facility] Immunizations Immunization Date Immunization Notes Care Provider Azam lemus 03-02-2023 meningococcal B vacc ine, recombinant, OMV, adjuvanted Maria Teresa Bardales APRN.CNP Work Phone: [facility] 03-02-2023 pneumococcal conjuga te (PCV20) vaccine, 20 valent (PREVNAR 20) Maria Teresa Bardales APRN.COOKY PACKER Work Phone: [facility] 08-19-2022 hepatitis A vaccine, adult dosage Maria Teresa Bardales APRN.COOKY PACKER Work Phone: [facility] 08-19-2022 hepatitis B vaccine, adult dosage Maria Teresa Bardales APRN.COOKY PACKER Work Phone: [facility] 08-19-2022 measles, mumps and rubella virus vaccine Maria Teresa Bardales APRN.COOKY PACKER Work Phone: [facility] 08-19-2022 varicella virus vaccine Mae Bardales APRN.COOKY PACKER Work Phone: [facility] 07-30-2022 influenza, injectabl e, quadrivalent, preservative free Maria Teresa Bardales APRN.COOKY PACKER Work Phone: [facility] 07-30-2022 influenza virus vacc ine, unspecified formulation Maria Teresa Bardales APRN.COOKY PACKER Work Phone: [facility] 05-14-2022 COVID-19 vaccine, ag e 12+ yr, bivalent (PFIZER-BIONTBantam Live) Maria Teresa Bardales APRN.COOKY PACKER Work Phone: [facility] 05-14-2022 influenza, injectabl e, quadrivalent, contains preservative Maria Teresa Bardales APRN.COOKY PACKER Work Phone: [facility] 09-07-2021 hepatitis A and hepatitis B vaccine Maria Teresa Bardales APRN.COOKY PACKER Work Phone: [facility] 08-05-2021 adenovirus, type 4 a nd type 7, live, oral Maria Teresa Bardales APRN.COOKY PACKER Work Phone: [facility] 08-05-2021 hepatitis A and hepatitis B vaccine Maria Teresa Bardales APRN.COOKY PACKER Work Phone: [facility] 08-05-2021 influenza, injectabl e, quadrivalent, preservative free Maria Teresa Bardales APRN.COOKY PACKER Work Phone: [facility] 08-05-2021 meningococcal polysaccharide (groups A, C, Y and W-135) diphtheria toxoid conjugate vaccine (MCV4P) Maria Teresa Bardales APRN.COOKY PACKER Work Phone: [facility] 08-05-2021 poliovirus vaccine, inactivated Maria Teresa Catia 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: [facility] 08-05-2021 tetanus toxoid, redu donavon diphtheria toxoid, and acellular pertussis vaccine, adsorbed Maria Teresa Catia 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: [facility] 05-10-2021 COVID-19 original vaccine, age 12+ yr, monovalent (PFIZER-BIONTECH - PURPLE TOP) Maria Teresa Catia 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: [facility] 05-10-2021 Seasonal, quadrivale nt, recombinant, injectable influenza vaccine, preservative free Maria Teresa Bardales 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: [facility] 12-30-2020 tetanus toxoid, redu donavon diphtheria toxoid, and acellular pertussis vaccine, adsorbed [facility] 12-21-2020 COVID-19 original vaccine, age 12+ yr, monovalent (PFIZER-BIONTECH - PURPLE TOP) Maria Teresa Catia 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: [facility] 08-13-2020 COVID-19 vaccine, ag e 12+ yr (PFIZER-BIONTECH - PURPLE TOP) Kary Plotts FIGURE SKATER.CNM Work Phone: [facility] 07-23-2020 COVID-19 vaccine, ag e 12+ yr (PFIZER-BIONTECH - PURPLE TOP) Kary Plotts FIGURE SKATER.CNM Work Phone: [facility] 04-16-2020 influenza, injectabl e, quadrivalent, contains preservative Kary Plotts FIGURE SKATER.CNM Work Phone: [facility] 05-24-2019 influenza, seasonal, injectable Kary Plotts FIGURE SKATER.CNM Work Phone: [facility] Work Phone: 08-10-2018 influenza, injectabl e, quadrivalent, preservative free Kary Plotts FIGURE SKATER.CNM Work Phone: [facility] Work Phone: 08-10-2018 meningococcal B vacc ine, recombinant, OMV, adjuvanted Kary Macedo FIGURE SKATER.CNM Work Phone: [facility] Work Phone: 04-13-2018 tetanus toxoid, redu donavon diphtheria toxoid, and acellular pertussis vaccine, adsorbed Kary Macedo FIGURE SKATER.CNM Work Phone: [facility] 04-11-[address] [facility] Work Phone: 04-11-2018 influenza, seasonal, injectable, preservative free Kary Macedo FIGURE SKATER.CNM Work Phone: [facility] Work Phone: 04-02-2018 influenza, injectabl e, quadrivalent, contains preservative Kary Macedo FIGURE SKATER.CNM Work Phone: [facility] Work Phone: 03-23-2018 tetanus toxoid, redu donavon diphtheria toxoid, and acellular pertussis vaccine, adsorbed Kary Macedo FIGURE SKATER.CNM Work Phone: [facility] Work Phone: 02-21-2018 RHO(D) immune globul in- IV or IM Kary Macedo FIGURE SKATER.CNM Work Phone: [facility] Work Phone: 05-25-2017 Human Papillomavirus 9-valent vaccine Kary Macedo FIGURE SKATER.CNM Work Phone: [facility] Work Phone: 04-18-2017 influenza, injectabl e, quadrivalent, preservative free Kary Macedo FIGURE SKATER.CNM Work Phone: [facility] Work Phone: 04-18-2017 meningococcal polysaccharide (groups A, C, Y and W-135) diphtheria toxoid conjugate vaccine (MCV4P) Kary Macedo FIGURE SKATER.CNM Work Phone: [facility] Work Phone: 05-11-2012 influenza virus vacc ine, live, attenuated, for intranasal use Kary Salgadots FIGURE SKATER.CNM Work Phone: [facility] Work Phone: 04-12-2011 influenza virus vacc ine, live, attenuated, for intranasal use Kary Salgadots FIGURE SKATER.CN Work Phone: [facility] Work Phone: 11-05-2010 tetanus toxoid, redu donavon diphtheria toxoid, and acellular pertussis vaccine, adsorbed Kary Plotts FIGURE SKATER.CN Work Phone: [facility] Work Phone: 06-14-2010 human papilloma viru s vaccine, quadrivalent Kary Plotts FIGURE SKATER.CN Work Phone: [facility] Work Phone: 06-14-2010 influenza virus vacc ine, live, attenuated, for intranasal use Kary Plotts FIGURE SKATER.CN Work Phone: [facility] Work Phone: 06-14-2010 varicella virus vaccine [facility] tney Hellen FIGURE SKATER.CNM Work Phone: [facility] Work Phone: 12-22-2009 human papilloma viru s vaccine, quadrivalent Kary Salgadots FIGURE SKATER.CNM Work Phone: [facility] Work Phone: 10-19-2009 human papilloma viru s vaccine, quadrivalent Kary Salgadots FIGURE SKATER.CNM Work Phone: [facility] Work Phone: 10-19-2009 meningococcal polysaccharide (groups A, C, Y and W-135) diphtheria toxoid conjugate vaccine (MCV4P) Kary Salgadots FIGURE SKATER.CNM Work Phone: [facility] Work Phone: 04-30-2009 influenza virus vacc ine, live, attenuated, for intranasal use Kary Hellen FIGURE SKATER.CNM Work Phone: [facility] Work Phone: 06-01-2007 influenza virus vacc ine, whole virus Kary Macedo FIGURE SKATER.CNM Work Phone: [facility] Work Phone: 05-24-2005 influenza virus vacc ine, whole virus Kary Salgadots FIGURE SKATER.CNM Work Phone: [facility] Work Phone: 09-17-2003 diphtheria, tetanus toxoids and acellular pertussis vaccine, unspecified formulation Kary Plotyuki FIGURE SKATER.CNM Work Phone: [facility] Work Phone: 09-17-2003 measles, mumps and rubella virus vaccine Kary Salgadoyuki FIGURE SKATER.CNM Work Phone: [facility] Work Phone: 09-17-2003 poliovirus vaccine, inactivated Kary Macedo FIGURE SKATER.CNM Work Phone: [facility] Work Phone: 1999 diphtheria, tetanus toxoids and acellular pertussis vaccine, unspecified formulation Kary Salgadoyuki FIGURE SKATER.CNM Work Phone: [facility] Work Phone: 1999 haemophilus influenz ae type b vaccine, PRP-T conjugate Kary Macedo FIGURE SKATER.CNM Work Phone: [facility] Work Phone: 1999 measles, mumps and rubella virus vaccine Kary Plotts FIGURE SKATER.CNM Work Phone: [facility] Work Phone: 1999 poliovirus vaccine, inactivated Kary Macedo FIGURE SKATER.CNM Work Phone: [facility] Work Phone: 1999 varicella virus vaccine [address] nimisha Macedo FIGURE SKATER.CNM Work Phone: [facility] Work Phone: 03-12-1999 diphtheria, tetanus toxoids and acellular pertussis vaccine, unspecified formulation Kary Plotts FIGURE SKATER.CNM Work Phone: [facility] Work Phone: 03-12-1999 haemophilus influenz ae type b vaccine, PRP-T conjugate Kary Plotts FIGURE SKATER.CNM Work Phone: [facility] Work Phone: 03-12-1999 hepatitis B vaccine, pediatric or pediatric/adolescent dosage Kary Plotts FIGURE SKATER.CNM Work Phone: [facility] Work Phone: 01-12-1999 diphtheria, tetanus toxoids and acellular pertussis vaccine, unspecified formulation Kary Plotts FIGURE SKATER.CNM Work Phone: [facility] Work Phone: 01-12-1999 haemophilus influenz ae type b vaccine, PRP-T conjugate Kary Plotts FIGURE SKATER.CNM Work Phone: [facility] Work Phone: 01-12-1999 poliovirus vaccine, inactivated Kary Plotts FIGURE SKATER.CNM Work Phone: [facility] Work Phone: 1998 diphtheria, tetanus toxoids and acellular pertussis vaccine, unspecified formulation Kary Plotts FIGURE SKATER.CNM Work Phone: [facility] Work Phone: 1998 haemophilus influenz ae type b vaccine, PRP-T conjugate Kary Plotts FIGURE SKATER.CNM Work Phone: [facility] Work Phone: 1998 hepatitis B vaccine, pediatric or pediatric/adolescent dosage Kary Plotts FIGURE SKATER.CNM Work Phone: [facility] Work Phone: 1998 poliovirus vaccine, inactivated Kary Plotts FIGURE SKATER.CNM Work Phone: [facility] Work Phone: 1998 hepatitis B vaccine, pediatric or pediatric/adolescent dosage Kary Macedo FIGURE SKATER.CNM Work Phone: [facility] Work Phone: 1998 respiratory syncytia l virus immune globulin, intravenous Kary Macedo FIGURE SKATER.CNM Work Phone: [facility] Payers Date Payer Category Payer Self-pay [id number] 2024 Unknown [id number] 2018 Medicaid [facility] MEDIC AID [facility] MEDICAID [id number] 2018-Present [phone] [address] [place] [address] Medicaid [id number] 2014 Medicaid [id number] 1998 Unknown [id number] [employer] ( and others) [id number] Unknown [facility] [id number] Unknown OB [facility] [id number] Unknown [id number] Social History Date Type Detail Facility Start: 09-18-2017 Tobacco smoking status NHIS Ex-smoker [facility] Work Phone: End: 05-18-2017 History of tobacco use Current smoker [facility] Work Phone: Start: 09-18-2017 End: 05-22-2024 Tobacco use and exposure Smokeless tobacco non-user [facility] Work Phone: Start: 01-05-2022 End: 05-22-2024 Alcohol intake Current drinker of alcohol (finding) [facility] Start: 01-05-2022 History SDOH Alcohol Comment occasionally [facility] Start: 2000 Sex Assigned At Female [facility] Work Phone: Start: 12-26-2021 End: 01-05-2022 Exposure to SARS-CoV-2 (event) Not sure [facility] Start: 06-18-2022 End: 07-01-2022 Tobacco smoking status [facility] Unknown if ever smoked [facility] Work Phone: Start: 05-10-2018 None [facility] Work Phone: Start: 05-18-2015 Tobacco smoking status NHIS Occasional tobacco smoker [facility] Start: 05-18-2015 End: 05-18-2017 History of tobacco use Cigarette Smoker [facility] Start: 05-22-2024 End: 12-12-2024 Cigarettes smoked current (pack per day) - Reported 0.5 [facility] Start: 06-14-2022 End: 12-12-2024 Social connection and isolation panel [facility] Do you belong to any clubs or organizations such as gnosticism groups, unions, fraternal or athletic groups, or school groups? No [facility] Are you now , , , , never or living with a partner? [facility] How often to you hav e a drink containing alcohol? Monthly or less [facility] How many standard dr inks containing alcohol do you have on a typical day? 1 or 2 [facility] How often do you hav e 6 or more drinks on 1 occasion? Never [facility] How hard is it for y ou to pay for the very basics like food, housing, medical care, and heating Not hard at all [facility] Do you feel stress - tense, restless, nervous, or anxious, or unable to sleep at night because your mind is troubled all the time - these days [OSQ] Not at all [facility] (I/We) worried wheth er (my/our) food would run out before (I/we) got money to buy more. Never true [facility] Start: 03-02-2023 Tobacco Comment 03/02/2023 2-3 cigarettes a week [facility] Start: 03-02-2023 Alcohol Comment 03/02/2023 4-5 shots Gennaro Moreno of vodka daily [facility] Start: 2000 Sex assigned at Not on file [facility] Start: 07-09-2018 Sexual orientation Homosexual (finding) [facility] Work Phone: Start: 07-25-2024 Gender identity Identifies as non-conforming gender (finding) [facility] Functional Status Date Assessment Result Facility 01-18-2015 Are you deaf, or do you have serious difficulty hearing No 01/18/2015 2:53 PM EDCleo Brady RN No [facility] Work Phone: 01-18-2015 Are you blind, or do you have serious difficulty seeing, even when wearing glasses No 01/18/2015 2:53 PM EDCleo Brady RN No [facility] 01-18-2015 Do you have serious difficulty walking or climbing stairs No 01/18/2015 2:53 PM EDCleo Brady RN No [facility] 01-18-2015 Do you have difficul ty dressing or bathing No 01/18/2015 2:53 PM EDCleo Brady RN No [facility] 01-18-2015 Because of a physica l, mental, or emotional condition, do you have difficulty doing errands alone such as visiting a physician's office or shopping No 01/18/2015 2:53 PM EDCleo Brady RN No [facility] Mental Status Date Assessment Result Facility 01-18-2015 Because of a physica l, mental, or emotional condition, do you have serious difficulty concentrating, remembering, or making decisions No 01/18/2015 2:53 PM Cleo Shetty RN No [facility] Clinical Notes 04-26-2018 to 10-20-2024 Rayna Bhatt PA - 10/20/2024 9:15 AM EDTTelephone Encounter - Keara Brand MA - 05/23/2024 8:15 AM EDTTelephone Encounter - Keara Brand MA - 05/23/2024 8:15 AM EDT Note Date & Type Note Facility 10-20-2024 Note SARS-COV-2 (AGENT OF COVID-19) RNA: Detected INFLUENZA A RNA: Not detected INFLUENZA B RNA: Not detected RESPIRATORY SYNCYTIAL VIRUS (RSV) RNA: Not detected [facility] Comment on above: Performed By: #### [id number] #### [facility] CLIA [id number] [address] [place] [address] STATES OF [facility] 10-20-2024 Note HNO ID: [id number] Author: RAYNA BHATT PA Service: ? Author Type: Physician Chainer Type: Progress Notes Filed: 10/20/2024 09:18 Note Text: [facility] Subjective Cheikh Parks is a 24 year old adult. Patient presents with: Nasal Congestion: cough, fever headache, bodyaches x 1 day HPI 24-year-old adult presents for cough, congestion, fever, headaches and bodyaches x 1 day. Patient states yesterday started getting sick. Patient states she has a cough, nasal congestion, fever, headache, body aches. denies any vomiting or diarrhea. Still able to eat and drink. 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 No other complaint. Has taken [id number] cough medication with minimal improvement. 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 omeprazole (PRILOSEC) 40 mg capsule Take 1 capsule by mouth once daily. 30 minutes before a meal FAMILY HISTORY Problem Relation Age of Onset Diabetes Mother Hypothyroidism Mother Heart Father Diabetes Maternal Grandmother other (Leukemia) Maternal Grandmother Social History Tobacco Use Smoking status: Some Days Current packs/day: 0.00 Average packs/day: 0.5 packs/day for 2.0 years (1.0 ttl pk-yrs) Types: Cigarettes Start date: 05/18/2015 Last attempt to quit: 05/18/2017 Years since quittin.4 Smokeless tobacco: Never Tobacco comments: 03/02/2023 2-3 cigarettes a week Vaping Use Vaping status: Never Used Substance Use Topics Alcohol use: Yes Alcohol/week: 4.0 - 5.0 standard drinks of alcohol Types: 4 - 5 Shots of liquor per week Comment: 03/02/2023 4-5 shots Gennaro Moreno of vodka daily Drug use: No Review of Systems Constitutional: Positive for chills and fever. HENT: Positive for congestion. Negative for ear pain and sore throat. Respiratory: Positive for cough. Negative for shortness of breath. Cardiovascular: Negative for chest pain. Gastrointestinal: Negative for diarrhea and vomiting. Objective BP 124/72 Pulse 110 Temp 37 ?C (98.6 ?F) Resp 18 Wt 81 kg (178 lb 9.2 oz) LMP 01/15/2023 (Within Days) SpO2 98% BMI 30.86 kg/m? Physical Exam Vitals and nursing note reviewed. Constitutional: General: Cheikh is not in acute distress. Appearance: Normal appearance. Cheikh is not toxic-appearing. HENT: Right Ear: Tympanic membrane and ear canal normal. Left Ear: Tympanic membrane and ear canal normal. Nose: Congestion present. Mouth/Throat: Mouth: Mucous membranes are moist. Eyes: Conjunctiva/sclera: Conjunctivae normal. Cardiovascular: Rate and Rhythm: Normal rate and regular rhythm. Pulmonary: Effort: Pulmonary effort is normal. Breath sounds: Normal breath sounds. No wheezing, rhonchi or rales. Skin: General: Skin is warm and dry. Neurological: Mental Status: Cheikh is alert. {ASSESSMENT/PLAN: 1. URI, acute - ICD9: 465.9, ICD10: J06.9 - Discussed viral etiology and rationale for treatment. - Symptomatic treatment with prn analgesia - Supportive care with fluids and rest - The patient may also use OTC cough and cold meds as needed. - COVID AND INFLUENZA A/B AND RSV PCR, ROUTINE -In window for Tamiflu until 10/21/2024. If flu positive, please treat. -If COVID-positive, will need a note placed in her MyChart stating she is COVID-positive Diagnosis and treatment plan were discussed and questions were answered to the patient's satisfaction. Pt acknowledged understanding of concepts and follow up plan. Specific signs and symptoms that would indicate the need for higher level of care were discussed in detail warranting prompt ER evaluation. WALESKA Burnett History and Record Review External record(s) reviewed: prior outpatient record. Systemic symptoms present included: Fever Differential Diagnoses - Viral URI is more likely for the following reason(s): suggested by HANDP - Pneumonia is less likely for the following reason(s): HANDP not suggestive Disposition The patient was discharged. OTC Medications were advised: Cough and cold medication as needed Procedures [facility] 10-20-2024 History of Presen t illness Narrative [facility] Subjective Cheikh Parks is a 24 year old adult. Patient presents with: Nasal Congestion: cough, fever headache, bodyaches x 1 day HPI 24-year-old adult presents for cough, congestion, fever, headaches and bodyaches x 1 day. Patient states yesterday started getting sick. Patient states she has a cough, nasal congestion, fever, headache, body aches. denies any vomiting or diarrhea. Still able to eat and drink. 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 No other complaint. Has taken [id number] cough medication with minimal improvement. 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 omeprazole (PRILOSEC) 40 mg capsule Take 1 capsule by mouth once daily. 30 minutes before a meal FAMILY HISTORY Problem Relation Age of Onset Diabetes Mother Hypothyroidism Mother Heart Father Diabetes Maternal Grandmother other (Leukemia) Maternal Grandmother Social History Tobacco Use Smoking status: Some Days Current packs/day: 0.00 Average packs/day: 0.5 packs/day for 2.0 years (1.0 ttl pk-yrs) Types: Cigarettes Start date: 05/18/2015 Last attempt to quit: 05/18/2017 Years since quittin.4 Smokeless tobacco: Never Tobacco comments: 03/02/2023 2-3 cigarettes a week Vaping Use Vaping status: Never Used Substance Use Topics Alcohol use: Yes Alcohol/week: 4.0 - 5.0 standard drinks of alcohol Types: 4 - 5 Shots of liquor per week Comment: 03/02/2023 4-5 shots Gennaro Moreno of vodka daily Drug use: No Review of Systems Constitutional: Positive for chills and fever. HENT: Positive for congestion. Negative for ear pain and sore throat. Respiratory: Positive for cough. Negative for shortness of breath. Cardiovascular: Negative for chest pain. Gastrointestinal: Negative for diarrhea and vomiting. Objective BP 124/72 Pulse 110 Temp 37 C (98.6 F) Resp 18 Wt 81 kg (178 lb 9.2 oz) LMP 01/15/2023 (Within Days) SpO2 98% BMI 30.86 kg/m Physical Exam Vitals and nursing note reviewed. Constitutional: General: Cheikh is not in acute distress. Appearance: Normal appearance. Cheikh is not toxic-appearing. HENT: Right Ear: Tympanic membrane and ear canal normal. Left Ear: Tympanic membrane and ear canal normal. Nose: Congestion present. Mouth/Throat: Mouth: Mucous membranes are moist. Eyes: Conjunctiva/sclera: Conjunctivae normal. Cardiovascular: Rate and Rhythm: Normal rate and regular rhythm. Pulmonary: Effort: Pulmonary effort is normal. Breath sounds: Normal breath sounds. No wheezing, rhonchi or rales. Skin: General: Skin is warm and dry. Neurological: Mental Status: Cheikh is alert. {ASSESSMENT/PLAN: 1. URI, acute - ICD9: 465.9, ICD10: J06.9 - Discussed viral etiology and rationale for treatment. - Symptomatic treatment with prn analgesia - Supportive care with fluids and rest - The patient may also use OTC cough and cold meds as needed. - COVID & INFLUENZA A/B & RSV PCR, ROUTINE -In window for Tamiflu until 10/21/2024. If flu positive, please treat. -If COVID-positive, will need a note placed in her MyChart stating she is COVID-positive Diagnosis and treatment plan were discussed and questions were answered to the patient's satisfaction. Pt acknowledged understanding of concepts and follow up plan. Specific signs and symptoms that would indicate the need for higher level of care were discussed in detail warranting prompt ER evaluation. WALESKA Burnett History and Record Review External record(s) reviewed: prior outpatient record. Systemic symptoms present included: Fever Differential Diagnoses - Viral URI is more likely for the following reason(s): suggested by H&P - Pneumonia is less likely for the following reason(s): H&P not suggestive Disposition The patient was discharged. OTC Medications were advised: Cough and cold medication as needed Procedures documented in this encounter [facility] 05-23-2024 Telephone encount er Note Patient active [employer]. Patient notified via [employer] message. Last login 05/23. Keara Brand MA [facility] 05-23-2024 Miscellaneous Notes Formattin g of this note might be different from the original. Patient active [employer]. Patient notified via [employer] message. Last login 05/23. Keara Brand MA Please notify chest xray normal. Continue with plan as discussed during visit. documented in this encounter [facility] 05-23-2024 Telephone encount er Note Please notify chest xray normal. Continue with plan as discussed during visit. [facility] Work Phone: 05-22-2024 History of Presen t illness Narrative Radiology Service Progress Note PATIENT NAME: Cheikh Parks DATE OF SERVICE: May 22, 2024 TIME: 6:32 PM PATIENT IDENTITY VERIFICATION COMPLETED USING TWO (2) IDENTIFIERS: Name and Date of confirmed by patient verbally. FALL SCREENING: Has the patient had 2 falls in the last year or 1 fall with injury or currently using an Ambulatory Assistive Device (Walker, Cane, Wheelchair, Crutches, etc.)? No PATIENT GENDER DATA: Female. status: : No status: NO. PATIENT RELEVANT IMPLANT DATA REVIEWED: Yes PATIENT PRESENTS WITH AN IMPLANTABLE OR ATTACHED SAMPLE TAILOR: No RADIOLOGY DEPARTMENT: General X-ray: Exam(s) Completed: Chest X-Ray PERIPHERAL IV DATA: Not applicable SIGNED BY: ARMIN Laurent) May 22, 2024 6:32 PM documented in this encounter [facility] 05-22-2024 Note HNO ID: [id number] Author: CRISPIN HALEY RT (R) Service: ? Author Type: [employer] Etcher Stripper Type: Progress Notes Filed: 05/22/2024 18:38 Note Text: Radiology Service Progress Note PATIENT NAME: Cheikh Parks DATE OF SERVICE: May 22, 2024 TIME: 6:32 PM PATIENT IDENTITY VERIFICATION COMPLETED USING TWO (2) IDENTIFIERS: Name and Date of confirmed by patient verbally. FALL SCREENING: Has the patient had 2 falls in the last year or 1 fall with injury or currently using an Ambulatory Assistive Device (Walker, Cane, Wheelchair, Crutches, etc.)? No PATIENT GENDER DATA: Female. status: : No status: NO. PATIENT RELEVANT IMPLANT DATA REVIEWED: Yes PATIENT PRESENTS WITH AN IMPLANTABLE OR ATTACHED SAMPLE TAILOR: No RADIOLOGY DEPARTMENT: General X-ray: Exam(s) Completed: Chest X-Ray PERIPHERAL IV DATA: Not applicable SIGNED BY: ARMIN Laurent) May 22, 2024 6:32 PM [facility] 05-22-2024 Note HNO ID: [id number] Author: MARIA TERESA BARDALES APRN.ANN Service: ? Author Type: Nurse Practitioner Type: Progress Notes Filed: 05/22/2024 18:52 Note Text: CC: Patient presents with: Sore Throat: ST, fever, SMITH and bodyaches x 1 day HPI: Cheikh Parks is a 23 year old female who presents to the office with complaint of sore throat and fever for the past day. Symptoms are staying the same. Associated symptoms includes headache and body aches. Denies nausea, vomiting , and diarrhea. Treatments tried include nothing so far. with no relief of symptoms. Sick contacts: pneumonia. History of asthma, frequent episodes of bronchitis, chronic bronchitis, bronchiectasis or COPD: No Smoker: No Seasonal/environmental allergies: No The ROS is otherwise negative. The patient's pmh, medications, allergies, and past visits are reviewed. PHYSICAL EXAM: BP 124/78 Pulse 84 Temp (!) 38.2 ?C (100.8 ?F) (Tympanic) Resp 18 Wt 78.9 kg (173 lb 15.1 oz) LMP 01/15/2023 (Within Days) SpO2 98% BMI 30.06 kg/m? General appearance: alert, cooperative, pleasant, in no acute distress Head: Normocephalic Eyes: EOM's intact, conjunctiva pink and moist, no icterus, sclera white, non-injected Ears: Right ear: External ear/canal- Normal, TM - clear with good landmarks. Left ear: External ear/canal- Normal, TM - clear with good landmarks Oropharynx:moist without lesions, No erythema, exudates or tonsillar hypertrophy. Heart: Negative. RRR without obvious murmur, gallop, or rubs. No ectopy. 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 omeprazole (PRILOSEC) 40 mg capsule Take 1 capsule by mouth once daily. 30 minutes before a meal FAMILY HISTORY Problem Relation Age of Onset Diabetes Mother Hypothyroidism Mother Heart Father Diabetes Maternal Grandmother other (Leukemia) Maternal Grandmother Social History Tobacco Use Smoking status: Some Days Current packs/day: 0.00 Average packs/day: 0.5 packs/day for 2.0 years (1.0 ttl pk-yrs) Types: Cigarettes Start date: 05/18/2015 Last attempt to quit: 05/18/2017 Years since quittin.0 Smokeless tobacco: Never Tobacco comments: 03/02/2023 2-3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
[2025-06-03 22:15] LABS: Hematocrit 40.1 % (37-47); Hemoglobin 13.5 g/dL (12.0-15.0); Immature Granulocytes Count 0.020 X10^3/uL (0.0-0.0); Mean Corp Hgb Conc 33.7 g/dL (32-36); Mean Corpuscular Volume 89.1 fL (81-99); Mean Platelet Vol. 9.7 fl (6.2-12.0); NRBC Flagged by Analyzer 0 % (0-5); Platelet Count 257 K/mm3 (150-450); RBC Distribution Width CV 12.4 % (11.6-14.6); RBC Distribution Width SD 40.4 fl (35.1-43.9); Red Blood Count 4.50 M/mm3 (4.2-5.4); White Blood Count 5.9 K/mm3 (4.4-11.0)
[2025-06-03 22:23] VITALS: BP 131/76; PULSE 77; RESP 20; O2SAT 98
--- NOTE | 2025-06-03 22:47 | EDS_ITS ---
HPI History of Present Illness Chief Complaint: Substance Abuse Narrative Narrative: Patient is a 24-year-old female presenting to the emergency department for alcohol detox. Patient has a past medical history of alcohol abuse. She states that she is not sure how long she has been drinking daily for, states that she will drink for months at a time and then stop. She reports that she has never been admitted to a detox or rehab center for alcohol detox. She endorses using marijuana today, denies any other drug use. She denies any history of alcohol withdrawal seizures. Reports that her last drink was about an hour and a half ago. Reports that she drinks about a bottle of vodka a day. Denies any complaints at time of evaluation including denying chest pain, shortness of breath, abdominal pain, nausea, vomiting. [facility] Medical History Alcohol abuse Tobacco use Overweight Anxiety and depression PCOS (polycystic ovarian syndrome) Clay's disease History of miscarriage Heart murmur Home Medications Medication Instructions Recorded Last Taken Type NK 06/03/25 Unknown History Allergy/AdvReac Type Severity Reaction Status Date / Time amoxicillin (Amoxicillin) Allergy Rash Verified 06/03/25 20:24 Family History (Updated 06/03/25 @ 23:[address] Mayra Rahman MD) Mother Diabetes Alcohol abuse Father Alcohol abuse Surgical History (Updated 06/03/25 @ 23:[address] Mayra Rahman MD) No history of previous surgery Social History household members: family Smoking Status: Current some day smoker alcohol intake: current alcohol intake frequency: 3 or more drinks per day Alcohol type: hard liquor details: 07/28 caity daily, occasional wine coolers also. substance use type: marijuana ROS ROS ED ROS Narrative see HPI EXAM Physical Exam Narrative Exam Narrative: Vital signs: Reviewed General: Alert and orientedx3. No acute distress HEENT: Head is normocephalic and atraumatic, sinuses nontender, pupils equal round and reactive. Nares are patent. Oropharynx and throat exams normal. No tongue fasciculations noted. Neck: Supple without lymphadenopathy nontender Cardiovascular: Regular rate and rhythm, no murmurs. No rubs or gallops. Normal S1 and S2 Respiratory: Clear to auscultation bilaterally. No wheezes, rales, rhonchi Abdominal: Soft and nontender. Normal bowel sounds. No guarding or rebound. Nonsurgical abdomen Extremities: No tenderness. No bruising. Normal range of motion. Normal sensation. Skin: No rash or redness. Neurological: Cranial nerves II through XII are grossly intact. Normal strength and sensation. Normal cerebellar function The rest of the physical exam is unremarkable Const Vital Signs: 06/03/25 20:23 06/03/25 22:23 Temperature 98.2 F Temperature Source Oral Pulse Rate 88 77 Respiratory Rate 18 20 H Blood Pressure 137/86 H 131/76 H Blood Pressure Mean 103 94 Pulse Ox 99 98 Oxygen Delivery Method Room Air Room Air MDM MDM MDM Narrative Medical decision making narrative: Patient is a 24-year-old female presenting to the emergency department for alcohol detox. Patient was seen and examined. Vitals are stable. Patient resting bed comfortably no acute distress. Patient last drink an hour and a half ago I do not have concern for withdrawal at this time. Denies any history of alcohol withdrawal seizures. [facility] protocol was ordered. Basic labs including CBC, BMP, urine drug screen, alcohol level and EKG were obtained, planning for admission. CBC with no leukocytosis and a normal hemoglobin. BMP with no significant abnormalities. Urine negative. Urine drug screen negative. Alcohol level negative. EKG shows normal sinus rhythm with no ischemic changes. No dysrhythmia. Will admit for alcohol detox at patient's request. No evidence of withdrawal here in the emergency department. Patient admitted to hospitalist, Dr. Rahman. Clinical impression Alcohol abuse History & Record Review Discussion w/independent historian: Patient Lab Data Attestation: I reviewed the patient's lab results. Labs: Laboratory Results - last 24 hr 06/03/25 06/03/25 21:55 22:23 WBC 5.9 RBC 4.50 Hgb 13.5 Hct 40.1 MCV 89.1 MCH 30.0 MCHC 33.7 RDW Std Deviation 40.4 RDW Coeff of Maribell 12.4 Plt Count 257 MPV 9.7 Immature Gran % (Auto) 0.300 Neut % (Auto) 52.6 Lymph % (Auto) 36.5 [place] % (Auto) 9.5 Eos % (Auto) 0.8 Baso % (Auto) 0.3 Absolute Neuts (auto) 3.1 Absolute Lymphs (auto) 2.16 Nucleated RBC % 0 Sodium 140 Potassium 4.0 Chloride 105 Carbon Dioxide 23.2 Anion Gap 12 BUN 8 Creatinine 0.77 Estim Creat Clear Calc 111.06 Est GFR (MDRD) Non-Af 109 BUN/Creatinine Ratio 10.0 Glucose 90 Calcium 9.3 Urine Test Negative Urine Opiates Screen NEGATIVE U Buprenorphine Qual NEGATIVE Ur Oxycodone Screen NEGATIVE Urine Methadone Screen NEGATIVE Urine Fentanyl Screen NEGATIVE Ur Barbiturates Screen NEGATIVE Ur Phencyclidine Scrn NEGATIVE Ur Amphetamines Screen NEGATIVE U Benzodiazepines Scrn NEGATIVE Urine Cocaine Screen NEGATIVE U Cannabinoids Screen NEGATIVE Ethyl Alcohol < 10.1 Discharge Plan Triage Chief Complaint: Substance Abuse ED Provider: Lorri Cannon Dx/Rx/DC Orders Primary Care Provider: Care Physician,No Primary
[2025-06-03 22:54] LABS: Alcohol, Blood (Medical)-Serum < 10.1 mg/dL (<=10.0)
[2025-06-03 22:55] LABS: Anion Gap 12 (5-15); BUN 8 mg/dL (4-19); BUN/Creat Ratio 10.0 RATIO (10-20); Calcium,Total 9.3 mg/dL (7.6-11.0); Carbon Dioxide 23.2 mmol/L (21.0-32.0); Chloride 105 mmol/L (98-108); Estimated Creatinine Clearance 111.06 ml/min (50-250); Glucose 90 mg/dL (70-99); Potassium 4.0 mmol/L (3.3-5.1)
[2025-06-03 23:00] LABS: Internal QC Validated? YES +Cl - CLEAR BKGD; Pregnancy, Urine Negative Negative; Record Kit Lot#,Urine Preg 980607
[2025-06-03 23:08] LABS: Barbiturate Urine NEGATIVE (< 200 ng/mL); Benzodiazepine Urine NEGATIVE (< 200 ng/mL); PCP Urine NEGATIVE (< 25 ng/mL); THC Urine NEGATIVE (< 50 ng/mL)
--- NOTE | 2025-06-03 23:18 | PCM.HP.STD ---
HPI - General General Date of Admission: 06/03/25 Date of Service: 06/03/25 Chief Complaint: EtOH abuse with detoxification request. HPI Narrative The patient is a 24 y/o F w/ PMHx: Tobacco use, PCOS, Anxiety and Dedpression, Hx Clay's disease, Overweight who presents to the [facility] ED on 06/03/2025 with history of ongoing persistent heavy alcohol abuse with last drink 1.5 hours prior to ED arrival normally drinking approximately 1/5 Gennaro Moreno daily as well as intermittent wine coolers daily reporting that in the past she has stopped abruptly without any withdrawal seizures and has never gone through detox before but is very interested in sobriety and presenting requesting for alcohol detoxification assistance. She currently denies any alcohol withdrawal symptoms. Workup in the ED included T98.2, heart rate 88, BP 137/86, respiratory rate 18, 99% on room air with most recent repeat vitals heart rate 77, BP 131/76, respiratory rate 20, 90% on room air, CBC with WBC 5.9, hemoglobin 13.5, platelet 257, could shift, BMP unremarkable, negative test, ethyl alcohol less than 10.1, UDS negative. [facility] Medical History Alcohol abuse Tobacco use Overweight Anxiety and depression PCOS (polycystic ovarian syndrome) Clay's disease History of miscarriage Heart murmur Home Medications Medication Instructions Recorded Last Taken Type NK 06/03/25 Unknown History Allergy/AdvReac Type Severity Reaction Status Date / Time amoxicillin (Amoxicillin) Allergy Rash Verified 06/03/25 20:24 Family History Mother Diabetes Alcohol abuse Father Alcohol abuse Surgical History No history of previous surgery Social History household members: family Smoking Status: Current some day smoker alcohol intake: current alcohol intake frequency: 3 or more drinks per day Alcohol type: hard liquor details: 1/5th gennaro daily, occasional wine coolers also. substance use type: marijuana ROS ROS Narrative Admission Review of Systems: CONSTITUTIONAL: No weight loss, fever, chills, + weakness or fatigue. HEENT: Eyes: No visual loss, blurred vision, double vision or yellow sclerae. Ears, Nose, Throat: No hearing loss, sneezing, congestion, runny nose or sore throat. SKIN: No rash or itching, lesions, wounds. CARDIOVASCULAR: No chest pain, chest pressure or chest discomfort, palpitations, edema, orthopnea, syncopal events. RESPIRATORY: No shortness of breath, cough or sputum, wheezing, hemoptysis. GASTROINTESTINAL: No anorexia, nausea, vomiting or diarrhea, abdominal pain, melena, BRBPR. GENITOURINARY: No dysuria, frequency, urgency or retention. NEUROLOGICAL: No headache, dizziness, syncope, paralysis, ataxia, numbness or tingling in the extremities, focal weakness, change in bowel or bladder control, seizure. MUSCULOSKELETAL: + muscle, back pain, joint pain or stiffness. HEMATOLOGIC: No anemia, bleeding or bruising. LYMPHATICS: No enlarged nodes. No history of splenectomy. PSYCHIATRIC:+ History of anxiety and depression. ENDOCRINOLOGIC: No reports of sweating, cold or heat intolerance. No polyuria or polydipsia. ALLERGIES: + History of hives. Vital Signs Vital Signs Vital Signs: 06/03/25 20:23 06/03/25 22:23 Temperature 98.2 F Temperature Source Oral Pulse Rate 88 77 Respiratory Rate 18 20 H Blood Pressure 137/86 H 131/76 H Blood Pressure Mean 103 94 Pulse Ox 99 98 Oxygen Delivery Method Room Air Room Air Weight Weight: 169 lb 5 oz Body Mass Index (BMI) 29.0 Physical Exam Narrative Physical Examination: General: Awake, alert, oriented x 3 and cooperative, seated upright in the ED bed, no obvious current withdrawal symptoms. Skin: Normal color, normal turgor, no icterus, no cyanosis except occasional abrasion, stage ecchymoses. HEENT: AT/NC, EOMI, PERRLA, MMM, no carotid bruits or JVD noted. Lungs: CTA bilaterally, moderate effort, mild decrease BL bases, no rales, ronchi or wheezing. Heart: Regular rate and rhythm; no gallop, rub audible. Abdomen: Soft, NTTP, ND, normal BS, no markedly appreciated HSM. Extremities: No cyanosis, clubbing, or edema. Neurological: Patient awake, alert, oriented as noted, cognitive function intact; pupils equally reactive to light and accommodation, cranial nerves grossly normal, moving all 4 extremities, no focal deficits, strength mildly globally decreased suspected secondary to intoxication. Psychiatric: Affect appears extremely tearful, frequently smiling and giggling, no acute evidence of depressive or anxiety feelings but does have underlying history. Results Lab / Micro Data 06/03/25 21:55 06/03/25 21:55 Labs: Laboratory Results - last 24 hr 06/03/25 21:55: WBC 5.9, RBC 4.50, Hgb 13.5, Hct 40.1, MCV 89.1, MCH 30.0, MCHC 33.7, RDW Std Deviation 40.4, RDW Coeff of Maribell 12.4, Plt Count 257, MPV 9.7, Immature Gran % (Auto) 0.300, Neut % (Auto) 52.6, Lymph % (Auto) 36.5, [place] % (Auto) 9.5, Eos % (Auto) 0.8, Baso % (Auto) 0.3, Absolute Neuts (auto) 3.1, Absolute Lymphs (auto) 2.16, Nucleated RBC % 0, Sodium 140, Potassium 4.0, Chloride 105, Carbon Dioxide 23.2, Anion Gap 12, BUN 8, Creatinine 0.77, Estim Creat Clear Calc 111.06, Est GFR (MDRD) Non-Af 109, BUN/Creatinine Ratio 10.0, Glucose 90, Calcium 9.3, Ethyl Alcohol < 10.1 06/03/25 22:23: Urine Test Negative, Urine Opiates Screen NEGATIVE, U Buprenorphine Qual NEGATIVE, Ur Oxycodone Screen NEGATIVE, Urine Methadone Screen NEGATIVE, Urine Fentanyl Screen NEGATIVE, Ur Barbiturates Screen NEGATIVE, Ur Phencyclidine Scrn NEGATIVE, Ur Amphetamines Screen NEGATIVE, U Benzodiazepines Scrn NEGATIVE, Urine Cocaine Screen NEGATIVE, U Cannabinoids Screen NEGATIVE Assessment & Plan Assessment/Plan (1) Admitted to alcohol detoxification center: PLAN: Plan The patient is a 24 y/o F w/ PMHx: Tobacco use, PCOS, Anxiety and Dedpression, Hx Clay's disease, Overweight who presents to the [facility] ED on 06/03/2025 with history of ongoing persistent heavy alcohol abuse with last drink 1.5 hours prior to ED arrival normally drinking approximately 1 bottle of vodka a day reporting that in the past she has stopped abruptly without any withdrawal seizures and has never gone through detox before but is very interested in sobriety and presenting requesting for alcohol detoxification assistance. #1. Alcohol abuse with concern for impending EtOH Withdrawal with interested in alcohol detoxification/sobriety: Will admit to [facility], routine labs obtained in the ED upon presentation with no marked findings however will request also addition of hepatic profile. Given interest in sobriety, will initiate and continue on protocol with taper course of Phenobarbital, as needed gabapentin, Catapres, Bentyl, Vistaril, IV fluids, IV antiemetics, Tylenol as needed for pain. Will consult Case management for assistance for transition to next level of rehabilitation care. Mag, phos pending. Maintain on CIWA protocol concurrently. #2. Chart reported history of Clay's disease: Per current list does not appear to be on any regimen, TSH and free T4 will be requested to be cautious given concern for lost to follow-up. #3. Anxiety and depression: Per current list does not appear to be on regimen, likely contributing greatly to substance abuse, encourage continued follow-up with 180/counseling and potentially medications if appropriate. #4. Tobacco Abuse: Encouraged cessation, inpatient consultation per RT, NR if desired. #5. Overweight: Weight loss and lifestyle changes encouraged. #6. DVT prophylaxis: Low risk for type presentation, encourage ambulation. Charges/Coding Visit Charges Inpatient E&M: 30341 Init Hosp L2 D/C Safety Score for UGIB Assessment Belcourt-Blatchford Bleeding Score (GBS): Stratifies upper GI bleeding patients who are "low-risk" and candidates for outpatient management. Hemoglobin, BUN, Recent Vital Signs: Hgb 13.5 g/dL (12.0-15.0) 06/03/25 21:55 BUN 8 mg/dL (4-19) 06/03/25 21:55 Pulse Rate 77 Blood Pressure 131/76 Total Risk Score: 0 Score Interpretation: Score of 0: A GBS of 0 is a “Low Risk” GI bleed, and is highly sensitive (99.6% in a 2007 retrospective study) for predicting which patients did not require any “medical intervention”: blood transfusion, endoscopy, or surgery. This was confirmed in a 2009 Lanc study where patients with a score of 0 were actually discharged and had no GI bleeding mortality at 6 month followup Score above 0: A GBS greater than zero suggests a “High Risk” GI bleed that is likely to require “medical intervention”: transfusion, endoscopy, or surgery. A higher GBS also correlated with a higher likelihood of needing intervention Scores >/= 6 are associated with >50% risk of needing intervention D/C Safety Score for LGIB Assessment Assessment Tool: Readmission and adverse event risk in patients with acute lower GI bleeding. Age, in years: <40 Hemoglobin and Recent Vital Signs: Hgb 13.5 g/dL (12.0-15.0) 06/03/25 21:55 Pulse Rate 77 06/03/25 22:23 Blood Pressure 131/76 06/03/25 22:23 Probability of safe discharge: 99% Total Risk Score: 0 Score Interpretation: Probability Percentage of safe discharge (absence of rebleeding, blood transfusion, therapeutic intervention, 28 day readmission, or ) Score of 8 or below: Consider discharge, with appropriate precautions. Score of 9 or above: Discharge NOT recommended. Consider admission with further workup and resuscitation as necessary.
[2025-06-03 23:29] VITALS: BP 143/76; PULSE 81; RESP 21; TEMP 36.6; O2SAT 99
--- OUTSIDE RECORDS SUMMARY | 2025-06-03 23:39 | XMS RPT_ITS | CCD ---
Author Organization [facility] Care Team Providers Care Dock Or Pier Laborer Name Role Phone JNKWAME PERDOMORosa Unavailable Unavailable KARLI HAYNES Unavailable Unavailable DENNIS IQBAL Unavailable Unavailable KARLI HAYNES Unavailable Unavailable KARLI HAYNES Unavailable Unavailable KAMILA FUNK Attending Unavailable REFERRED, SELF Referring Unavailable CLEM HAYNES Primary Care Unavailable Sonia Patel PA-C Primary Care Provider [phone] [place] PARISH NURSE.ANN Maria Esther A Primary Care Provi gigi Jaime Concepcion Referring Unavailable Jaime Concepcion Attending Unavailable Care Physician, No Primary Primary Care Unava ilable [place] PARISH NURSE.FISCAL ACCOUNTING CLERK, Maria Esther A Primary Care Provi gigi [...] Amoxicillin; Translations: [AMOXICILLIN] Drug Allergy 12-05-2011 Rash [facility] Repository Medications Current Medications Medication Drug Class(es) [...] Start: 06-18-2022 take [address] [facility] once daily Fluoxetine (Prozac) 40 mg Capsule [...] Comment on above: Take 1 tablet by [facility] twice daily for 7 days. 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 No other complaint. Has taken ektx-ukf-zcpdwsy cough medication with minimal improvement. PAST MEDICAL [...] headache, bodyaches (more content not included)... Normal [facility] Emergency Department Summary on 08-16-2024 Emergency Department Summary [facility] Medical Records Department [address] [place] [id number] Emergency Department Summary 08/16/24 MR#: [id number] Acct: [id number] Name: CHEIKH PARKS Rep #: [id number] : 2000 23 From: Jaime Concepcion DO [...] 98 98 Oxygen Delivery Method Room Air [facility] Narrative Medical decision making narrative: HISTORY OF [...] admission. Th (more content not included)... Normal [facility] HIP, UNI W/ Pelvis 2-3 Views on 08-16-2024 HIP, UNI W/ Pelvis 2-3 Views [facility] Imaging Services [address], [place] [address] HIP, UNI W/ Pelvis 2-3 Views MR#: [id number] Acct: [id number] Name: CHEIKH PARKS Rep #: [id number] : 2000 F 23 From: Issa Muro MD PCP: WALESKA Short Status: PRE ER Study: HIP, UNI W/ Pelvis 2-3 Views Date of Exam: Exam# [id number] Ordering Dr: Jaime Concepcion DO [id number] STUDY: X-RAY - PELVIS AND RIGHT HIP [...] 21:39 EST Reading Location ID and State: [address] [place] [address] Tel , Service support , CC: Dr. Jaime Concepcion DO; WALESKA Short Optical Effects Line Up Person: Signed Normal [facility] Telephone ([facility]) CHEIKH PARKS ([id number]) 2000 F Date Time Provider Department 05/23/24 JOSSELIN DONNELLY [facility] During your visit today, we recorded the following information about you: Josselin Donnelly APRN.FISCAL ACCOUNTING CLERK 05/23/2024 7:39 AM Signed Please notify chest xray normal. Continue with plan as discussed during visit. Keara Brand MA 05/23/2024 8:15 AM Signed Patient active MyChart. Patient notified via [employer] message. Last login 05/23. Keara Brand MA [...] Status:Closed by KEARA BRAND on 05/23/24 [facility] Harvinder 05-22-2024 CNOV Office Visit (UCWSTR ) CHEIKH PARKS ([id number]) 2000 F Date Time Provider Department 05/22/24 6:15 PM MARIA TERESA BARDALES During your visit today, we recorded the following information about you: Temperature Pulse Respiration Blood pressure 100.8 degrees 84/minute 18/minute 124/78 Weight 78.9 kg Maria Teresa Bardales APRN.FISCAL ACCOUNTING CLERK 05/22/2024 6:52 PM Signed CC: Patient presents [...] agreeable to treatment plan. Maria Teresa Bardales APRN.FISCAL ACCOUNTING CLERK Allergies As of Date: 05/22/2024 Noted Allergy Reaction AMOXICILLIN 12/05/2011 2 - Rash Date Reviewed: 05/22/2024 Reviewed by: Eda Méndez LPN - Fully Assessed Reason for Visit: Sore Throat [200] Cmt: ST, fever, SMITH and bodyaches x 1 day Primary Visit Diagnosis:Sore throat [J02.9] Other Visit Diagnoses:Strep throat [J02.0] Acute cough [R05.1] Order(s):STREP A MOLECULAR (POC) [2322784] Order #: [id number] #:[id number] XR CHEST 2V FRONTAL/LAT [7259875] Order #: [id number] FUTURE azithromycin (ZITHROMAX) 500 mg tabletTake 1 [...] of depression (more content not included)... Normal [facility] STREP A MOLECULAR (POC)on Interpretation and review of laboratory results Abnormal [facility] Procedural Control Valid [facility] Strep A (POCT) Positive Abnormal Negative [facility] XR CHEST 2V FRONTAL/LATon XR CHEST [...] tissues: Unremarkable. IMPRESSION: No acute radiographic abnormality. Optical Effects Line Up Person: LORETO Transcribe Date/Time: May 22 2024 8:14P Dictated by : CATIA ROBERTO MD This examination was interpreted and the report reviewed and electronically signed by: CATIA ROBERTO MD on May 22 2024 8:14PM EST [id number] Normal [facility] XR Chest PA and Lateralon IMPRESSION: No acute radiographic abnormality. Optical Effects Line Up Person: LORETO Transcribe Date/Time: May 22 2024 8:14P [...] soft tissues: Unremarkable. DIVISION OF RADIOLOGY Provider, [facility] - 05/22/2024 * * *Final Report* * [...] Unremarkable. IMPRESSION IMPRESSION: No acute radiographic abnormality. Optical Effects Line Up Person: LORETO Transcribe Date/Time: May 22 2024 8:14P Dictated by : CATIA ROBERTO MD This examination was interpreted and the report reviewed and electronically signed by: CATIA ROBERTO MD on May 22 2024 8:14PM EST [facility] Radiology Study observation (narrative) [facility] XR Chest PA and LateralOrder ed By: Ccf Provider on 05-22-2024 [facility] Basophil percentageon 2021 Basophil percentage 5-10 SEEN /hpf 0-5 [facility] Work Phone: Bilirubin Test strip Ql (U)o n 06-18-2022 Bilirubin Ql (U) Negative Negative [facility] Work Phone: Ketones Test strip Ql (U)on 06-18-2022 Ketones Ql (U) Negative Negative [facility] Work Phone: Mucus LM Ql (Urine sed)on Mucus Ql (Urine sed) 0 SEEN /hpf [facility] Work Phone: Nitrite Test strip Ql (U)on 06-18-2022 Nitrite Ql (U) Negative Negative [facility] Work Phone: Protein Test strip Ql (U)on 06-18-2022 Protein Ql (U) Negative Negative [facility] Work Phone: Squamous epithelial cells de tection in urine sediment by light microscopyon 06-18-2022 Epithelial cells.squamous LM Ql (Urine sed) 50-100 SEEN /hpf 5-10 [facility] Work Phone: Urine blood detectionon 05-25 RBC Ql (U) Negative Negative [facility] Work Phone: RBC Ql (U) 0 SEEN /hpf 0-5 [facility] Work Phone: Urine clarityon 06-18-2022 Clarity (U) Clear Clear [facility] Work Phone: Urine color determinationon 06-18-2022 Color (U) Yellow Yellow [facility] Work Phone: Urine glucose detectionon Glucose Ql (U) Normal mg/dl Normal [facility] Work Phone: Urine leukocyte esterase det ection by dipstickon 06-18-2022 Leukocyte esterase Test strip Ql (U) 500 /ul Negative [facility] Work Phone: Urine pHon 06-18-2022 pH (U) 7.0 [pH] 5.0 - 8.0 [facility] Work Phone: Urine sediment bacteria coun t by microscopy (number/high power field)on 06-18-2022 Bacteria LM.HPF (Urine sed) [#/Area] 0 /[HPF] None Seen [facility] Work Phone: Urine specific gravity measu rementon 06-18-2022 Specific gravity (U) [Rel density] 1.015 1.002-1.030 [facility] Work Phone: Urobilinogen Auto test strip Ql (U)on 06-18-2022 Urobilinogen Ql (U) Normal mg/dl Normal [facility] Work Phone: Progress Noteon 08-10-2018 Gi Technician Authentication Interface Message Text Patient ID: Cheikh [...] 64.5 kg, last menstrual period 07/29/2018. Normal [facility] Gi Technician Authentication Interface Message Text Cheikh Parks is [...] Document Electronically signed by: JUNG Quinones Normal [facility] Emergency Room Note on 04-17-2017 [facility] Patient Summary Documentson 04-17-2017 Patient Summary Documents [facility] Note on 01-20-2017 [facility] Note [facility] ED Note-Provideron 7 ED Note-Provider [facility] Patient Summary Documentson 01-18-2017 Patient Summary Documents Normal [facility] test (u)on 017 test (u) Negative Normal [facility] Comment on above: Order Comment: CBN Result Comment: HCG not detected. Performed By: #### P REGU ####[address] [address] Urinalysis (AO)on 01-18-2017 Erythrocytes (RBC) 0-5 Abnormal NONE SEEN [facility] Comment on above: Order Comment: CBN Performed By: #### U AO ####[address] [address] Squamous Epi 0-5 Abnormal NONE SEEN [facility] Comment on above: Order Comment: CBN Performed By: #### U AO ####[address] [address] WBC (Leukocytes) LOADED Abnormal NONE SEEN [facility] Comment on above: Order Comment: CBN Performed By: #### U AO ####[address] [address] Bilirubin (total) Negative Normal NEGATIVE [facility] Comment on above: Order Comment: CBN Performed By: #### U AO ####[address] [address] Glucose mass conc Negative Normal NEGATIVE [facility] Comment on above: Order Comment: CBN Performed By: #### U AO ####[address] [address] Hemoglobin mass conc (Bld) TRACE-INTACT Abnormal NEG - TRACE [facility] Comment on above: Order Comment: CBN Performed By: #### U AO ####[address] [address] pH of blood 5.5 [pH] Normal 5.0 - 8.0 [facility] Comment on above: Order Comment: CBN Performed By: #### U AO ####[place] [address] [address] Protein Negative Normal NEG - TRACE [facility] Comment on above: Order Comment: CBN Performed By: #### U AO ####[place] [address] [address] Urine, appearance CLEAR Normal CLEAR [facility] Comment on above: Order Comment: CBN Performed By: #### U AO ####[place] [id number] Urine, color YELLOW Normal [facility] Comment on above: Order Comment: CBN Performed By: #### U AO ####[place] [address] Urine, ketones presence Negative Normal NEGATIVE [facility] Comment on above: Order Comment: CBN Performed By: #### U AO ####[place] [address] Urine, nitrite presence Negative Normal NEGATIVE [facility] Comment on above: Order Comment: CBN Performed By: #### U AO ####[place] [address] Urine, specific gravity <=1.005 Abnormal 1.015-1.025 [facility] Comment on above: Order Comment: CBN Performed By: #### U AO ####[place] [address] Urine, urobilinogen 0.2 {Jayson'U}/dL Normal NORMAL [facility] Comment on above: Order Comment: CBN Performed By: #### U AO ####[place] [address] WBC (Leukocytes) MODERATE Abnormal NEGATIVE [facility] Comment on above: Order Comment: CBN Performed By: #### U AO ####[place] [address] [address] Specimen type (u) VOID Normal [facility] Comment on above: Order Comment: CBN Performed By: #### U AO ####[place] [address] [address] Influenza virus A and B and SARS-CoV-2 (COVID-19) Ag panel - Upper respiratory specim SARS-CoV-2 (COVID-19) RNA JENNIFER+probe Ql (Resp) [facility] Work Phone: No Panel Information SARS-CoV-2 & FLU Antigen (Rapid) [facility] Work Phone: Vital Signs Date Time Vital Sign Value Performing Clinician Facility 10-20-2024 09:07-0400 Body mass index (BMI) [Ratio] 30.86 kg/m2 Krislyn Aberegg PA Work Phone: [facility] 10-20-2024 09:07-0400 Body temperature 98.6 [degF] Krislyn Aberegg PA Work Phone: [facility] 10-20-2024 09:07-0400 Body weight 81 kg Krislyn Aberegg PA Work Phone: [facility] 10-20-2024 09:07-0400 Diastolic blood pressure 72 mm[Hg] Krislyn Aberegg PA Work Phone: [facility] 10-20-2024 09:07-0400 Heart rate 110 /min Krislyn Aberegg PA Work Phone: [facility] 10-20-2024 09:07-0400 Respiratory rate 18 /min Krislyn Aberegg PA Work Phone: [facility] 10-20-2024 09:07-0400 SaO2% (BldA) [Mass fraction] 98 % Krislyn Aberegg PA Work Phone: [facility] 10-20-2024 09:07-0400 Systolic blood pressure 124 mm[Hg] Krislyn Aberegg PA Work Phone: [facility] 05-22-2024 18:14-0400 Body mass index (BMI) [Ratio] 30.06 kg/m2 Maria Teresa Bardales APRN.FISCAL ACCOUNTING CLERK Work Phone: [facility] 05-22-2024 18:14-0400 Body temperature 100.8 [degF] Maria Teresa Bardales APRN.FISCAL ACCOUNTING CLERK Work Phone: [facility] 05-22-2024 18:14-0400 Body weight 78.9 kg Maria Teresa Bardales APRN.FISCAL ACCOUNTING CLERK Work Phone: [facility] 05-22-2024 18:14-0400 Diastolic blood pressure 78 mm[Hg] Maria Teresa Bardales APRN.FISCAL ACCOUNTING CLERK Work Phone: [facility] 05-22-2024 18:14-0400 Heart rate 84 /min Maria Teresa Bardales APRN.FISCAL ACCOUNTING CLERK Work Phone: [facility] 05-22-2024 18:14-0400 Respiratory rate 18 /min Maria Teresa Bardales APRN.FISCAL ACCOUNTING CLERK Work Phone: [facility] 05-22-2024 18:14-0400 SaO2% (BldA) [Mass fraction] 98 % Maria Teresa Bardales APRN.FISCAL ACCOUNTING CLERK Work Phone: [facility] 05-22-2024 18:14-0400 Systolic blood pressure 124 mm[Hg] Maria Teresa Bradales APRN.FISCAL ACCOUNTING CLERK Work Phone: [facility] 07-01-2022 18:20-0500 Diastolic blood pressure 69 mm[Hg] [facility] Work Phone: 07-01-2022 18:20-0500 Heart rate 58 /min [facility] Work Phone: 07-01-2022 18:20-0500 Respiratory rate 16 /min [facility] Work Phone: 07-01-2022 18:20-0500 SaO2% (BldA) [Mass fraction] 100 % [facility] Work Phone: 07-01-2022 18:20-0500 Systolic blood pressure 115 mm[Hg] [facility] Work Phone: 07-01-2022 16:08-0500 Body height 162.56 cm [facility] Work Phone: 07-01-2022 16:08-0500 Body mass index (BMI) [Ratio] 25.1 kg/m2 [facility] Work Phone: 07-01-2022 16:08-0500 Body temperature 96.8 [degF] [facility] Work Phone: 07-01-2022 16:08-0500 Body weight 66.4 kg [facility] Work Phone: 06-18-2022 23:45-0500 Heart rate 18 /min [facility] Work Phone: 06-18-2022 21:32-0500 Respiratory rate 18 /min [facility] Work Phone: 06-18-2022 19:07-0500 Body height 162.56 cm [facility] Work Phone: 06-18-2022 19:07-0500 Body mass index (BMI) [Ratio] 25.9 kg/m2 [facility] Work Phone: 06-18-2022 19:07-0500 Body temperature 97.5 [degF] [facility] Work Phone: 06-18-2022 19:07-0500 Body weight 68.6 kg [facility] Work Phone: 06-18-2022 19:07-0500 Diastolic blood pressure 74 mm[Hg] [facility] Work Phone: 06-18-2022 19:07-0500 SaO2% (BldA) [Mass fraction] 100 % [facility] Work Phone: 06-18-2022 19:07-0500 Systolic blood pressure 108 mm[Hg] [facility] Work Phone: Encounters Encounter Date Encounter Type Care Provider Facility Start: 03-27-2025 End: 03-27-2025 ambulatory [facility] Facility:[facility] Start: 03-19-2025 End: 03-19-2025 ambulatory [facility] Facility:[facility] Start: 10-21-2024 End: 12-21-2024 Follow-up encounter Brandon Josephrafa EDMONDSONFISCAL ACCOUNTING CLERK Work Phone: [facility] Start: 10-20-2024 End: 10-20-2024 ambulatory [facility] Facility:[facility] Start: 10-20-2024 End: 10-20-2024 Patient encounter procedure Rayna GALEANO Work Phone: [facility] Comment on above: URI, acute (Primary Dx) Start: 08-16-2024 End: 08-16-2024 Emergency department patient visit Jaime Concepcion Facility:[facility] Start: 05-23-2024 End: 05-23-2024 Telephone encounter Josselin Donnelly APRN.FISCAL ACCOUNTING CLERK Work Phone: [facility] Comment on above: Results Start: 05-22-2024 End: 05-22-2024 Subsequent hospital visit by physician [facility] Work Phone: Radiology Comment on above: Acute cough [R05.1] Start: 05-22-2024 End: 05-22-2024 ambulatory [facility] Facility:[facility] Start: 05-22-2024 End: 05-22-2024 Patient encounter procedure Maria Teresa Bardales APRN.FISCAL ACCOUNTING CLERK Work Phone: [facility] Comment on above: Sore throat (Primary Dx); Strep throat; Acute cough Start: 07-01-2022 End: 07-01-2022 Emergency department patient visit [facility] Start: 06-18-2022 End: 06-18-2022 Emergency department patient visit [facility] Start: 01-14-2022 End: 01-14-2022 ambulatory Alia Ibarra MD Work Phone: OB/Gynecology Comment on above: DUB Start: 01-14-2022 End: 01-14-2022 Patient encounter procedure Alia Ibarra MD Work Phone: [facility] Start: 01-12-2022 Telephone encounter Bhavya vásquez PARISH NURSE.CNM Work Phone: OB/Gynecology Comment on above: Results Start: 01-07-2022 Telephone encounter Kary yao PARISH NURSE.CNM Work Phone: OB/Gynecology Comment on above: Results Start: 08-10-2018 End: 08-10-2018 Patient encounter procedure KAMILA Paras BLESSING [facility] Start: 09-18-2017 End: 06-22-2018 Patient requested procedure Maria Teresa Bardales APRN.FISCAL ACCOUNTING CLERK Work Phone: [facility] Start: 04-17-2017 End: 04-17-2017 Emergency department patient visit KWAME AgustinRosa MARIA Facility: Start: 01-18-2017 End: 01-18-2017 Emergency department patient visit DENNIS Haley KAUFMANEY Facility:[facility] Procedures Date Procedure Procedure Detail Performing Clinician Start: 05-22-2024 Radiologic exam ches t 2 views Maria Teresa Bardales APRN.FISCAL ACCOUNTING CLERK Work Phone: Start: 05-22-2024 STREP A MOLECULAR (POC) Bhavya Garcia APRN.FISCAL ACCOUNTING CLERK Work Phone: Start: 07-01-2022 Plain chest X-ray [...] DTaP,Tdap,Td Vaccine (11 - Td or Tdap) [facility] Start: 04-13-2028 Urine microalbumin profile DTAP,TDAP,TD (9 - Td or Tdap) [facility] Start: 01-05-2025 PAP TESTING PAP TESTING [facility] Start: 01-05-2025 Screening for malign ant neoplasm of cervix Cervical Cancer Screening [facility] Start: 03-24-2024 Covid-19 Vaccine ( season) Covid-19 Vaccine ( season) [facility] Start: 03-24-2024 Influenza vaccination Influenza Vacc ine (#1) [facility] Start: 01-05-2023 CHLAMYDIA SCREENING (18-24) CHLAMYDIA SCREENING (18-24) [facility] Start: 01-05-2023 GC (GONORRHEA) SCREE ANA (18-24) GC (GONORRHEA) SCREENING (18-24) [facility] Start: 2019 PAP TESTING PAP TESTING [facility] Start: 09-07-2018 MENINGOCOCCAL B: Consider based on risk (2 of 2 - Risk Bexsero 2-dose series) MENINGOCOCCAL B: Consider based on risk (2 of 2 - Risk Bexsero 2-dose series) [facility] Start: 2016 Anxiety Screening Anxiety Screening [facility] Start: 2016 Depression Screening Depression Scre ening [facility] Start: 2016 HEPATITIS C SCREENING HEPATITIS C SC RU [facility] Start: 2012 PEDS TO ADULT TRANSI TION ANNUAL ASSESSMENT PEDS TO ADULT TRANSITION ANNUAL ASSESSMENT [facility] Start: 2010 Adult depression screening assessment DEPRESSION SCREENING [facility] Start: 2010 PEDS TO ADULT TRANSI TION INITIAL DISCUSSION PEDS TO ADULT TRANSITION INITIAL DISCUSSION [facility] COVID & INFLUENZA A/ B & RSV PCR, ROUTINE COVID & INFLUENZA A/B & RSV PCR, ROUTINE Microbiology Routine URI, acute Ordered: 10/20/2024 [facility] Work Phone: Comment on above: Ordered: 10/20/2024 Patient Education [facility] Work Phone: Patient referral [facility] Work Phone: [facility] Immunizations Immunization Date Immunization Notes Care Provider Azam lemus 03-02-2023 meningococcal B vacc ine, recombinant, OMV, adjuvanted Maria Teresa Bardales APRN.CNP Work Phone: [facility] 03-02-2023 pneumococcal conjuga te (PCV20) vaccine, 20 valent (PREVNAR 20) Maria Teresa Bardales APRN.FISCAL ACCOUNTING CLERK Work Phone: [facility] 08-19-2022 hepatitis A vaccine, adult dosage Maria Teresa Bardales APRN.FISCAL ACCOUNTING CLERK Work Phone: [facility] 08-19-2022 hepatitis B vaccine, adult dosage Maria Teresa Bardales APRN.FISCAL ACCOUNTING CLERK Work Phone: [facility] 08-19-2022 measles, mumps and rubella virus vaccine Maria Teresa Bardales APRN.FISCAL ACCOUNTING CLERK Work Phone: [facility] 08-19-2022 varicella virus vaccine Mae Bardales APRN.FISCAL ACCOUNTING CLERK Work Phone: [facility] 07-30-2022 influenza, injectabl e, quadrivalent, preservative free Maria Teresa Bardales APRN.FISCAL ACCOUNTING CLERK Work Phone: [facility] 07-30-2022 influenza virus vacc ine, unspecified formulation Maria Teresa Bardales APRN.FISCAL ACCOUNTING CLERK Work Phone: [facility] 05-14-2022 COVID-19 vaccine, ag e 12+ yr, bivalent (PFIZER-BIONTBall Street) Maria Teresa Bardales APRN.FISCAL ACCOUNTING CLERK Work Phone: [facility] 05-14-2022 influenza, injectabl e, quadrivalent, contains preservative Maria Teresa Bardales APRN.FISCAL ACCOUNTING CLERK Work Phone: [facility] 09-07-2021 hepatitis A and hepatitis B vaccine Maria Teresa Bardales APRN.FISCAL ACCOUNTING CLERK Work Phone: [facility] 08-05-2021 adenovirus, type 4 a nd type 7, live, oral Maria Teresa Bardales APRN.FISCAL ACCOUNTING CLERK Work Phone: [facility] 08-05-2021 hepatitis A and hepatitis B vaccine Maria Teresa Bardales APRN.FISCAL ACCOUNTING CLERK Work Phone: [facility] 08-05-2021 influenza, injectabl e, quadrivalent, preservative free Maria Teresa Bardales APRN.FISCAL ACCOUNTING CLERK Work Phone: [facility] 08-05-2021 meningococcal polysaccharide (groups A, C, Y and W-135) diphtheria toxoid conjugate vaccine (MCV4P) Maria Teresa Bardales APRN.FISCAL ACCOUNTING CLERK Work Phone: [facility] 08-05-2021 poliovirus vaccine, inactivated Maria Teresa Catia PARISH NURSE.FISCAL ACCOUNTING CLERK Work Phone: [facility] 08-05-2021 tetanus toxoid, redu donavon diphtheria toxoid, and acellular pertussis vaccine, adsorbed Maria Teresa Catia PARISH NURSE.FISCAL ACCOUNTING CLERK Work Phone: [facility] 05-10-2021 COVID-19 original vaccine, age 12+ yr, monovalent (PFIZER-BIONTECH - PURPLE TOP) Maria Teresa Catia PARISH NURSE.FISCAL ACCOUNTING CLERK Work Phone: [facility] 05-10-2021 Seasonal, quadrivale nt, recombinant, injectable influenza vaccine, preservative free Maria Teresa Bardales PARISH NURSE.FISCAL ACCOUNTING CLERK Work Phone: [facility] 12-30-2020 tetanus toxoid, redu donavon diphtheria toxoid, and acellular pertussis vaccine, adsorbed [facility] 12-21-2020 COVID-19 original vaccine, age 12+ yr, monovalent (PFIZER-BIONTECH - PURPLE TOP) Maria Teresa Catia PARISH NURSE.FISCAL ACCOUNTING CLERK Work Phone: [facility] 08-13-2020 COVID-19 vaccine, ag e 12+ yr (PFIZER-BIONTECH - PURPLE TOP) Kary Plotts PARISH NURSE.CNM Work Phone: [facility] 07-23-2020 COVID-19 vaccine, ag e 12+ yr (PFIZER-BIONTECH - PURPLE TOP) Kary Plotts PARISH NURSE.CNM Work Phone: [facility] 04-16-2020 influenza, injectabl e, quadrivalent, contains preservative Kary Plotts PARISH NURSE.CNM Work Phone: [facility] 05-24-2019 influenza, seasonal, injectable Kary Plotts PARISH NURSE.CNM Work Phone: [facility] Work Phone: 08-10-2018 influenza, injectabl e, quadrivalent, preservative free Kary Plotts PARISH NURSE.CNM Work Phone: [facility] Work Phone: 08-10-2018 meningococcal B vacc ine, recombinant, OMV, adjuvanted Kary Macedo PARISH NURSE.CNM Work Phone: [facility] Work Phone: 04-13-2018 tetanus toxoid, redu donavon diphtheria toxoid, and acellular pertussis vaccine, adsorbed Kary Macedo PARISH NURSE.CNM Work Phone: [facility] 04-11-2018 Influenza virus vaccine [facility] Work Phone: 04-11-2018 influenza, seasonal, injectable, preservative free Kary Macedo PARISH NURSE.CNM Work Phone: [facility] Work Phone: 04-02-2018 influenza, injectabl e, quadrivalent, contains preservative Kary Macedo PARISH NURSE.CNM Work Phone: [facility] Work Phone: 03-23-2018 tetanus toxoid, redu donavon diphtheria toxoid, and acellular pertussis vaccine, adsorbed Kary Macedo PARISH NURSE.CNM Work Phone: [facility] Work Phone: 02-21-2018 RHO(D) immune globul in- IV or IM Kary Macedo PARISH NURSE.CNM Work Phone: [facility] Work Phone: 05-25-2017 Human Papillomavirus 9-valent vaccine Kary Macedo PARISH NURSE.CNM Work Phone: [facility] Work Phone: 04-18-2017 influenza, injectabl e, quadrivalent, preservative free Kary Macedo PARISH NURSE.CNM Work Phone: [facility] Work Phone: 04-18-2017 meningococcal polysaccharide (groups A, C, Y and W-135) diphtheria toxoid conjugate vaccine (MCV4P) Kary Macedo PARISH NURSE.CNM Work Phone: [facility] Work Phone: 05-11-2012 influenza virus vacc ine, live, attenuated, for intranasal use Kary Salgadots PARISH NURSE.CNM Work Phone: [facility] Work Phone: 04-12-2011 influenza virus vacc ine, live, attenuated, for intranasal use Kary Salgadots PARISH NURSE.CN Work Phone: [facility] Work Phone: 11-05-2010 tetanus toxoid, redu donavon diphtheria toxoid, and acellular pertussis vaccine, adsorbed Kary Plotts PARISH NURSE.CN Work Phone: [facility] Work Phone: 06-14-2010 human papilloma viru s vaccine, quadrivalent Kary Plotts PARISH NURSE.CN Work Phone: [facility] Work Phone: 06-14-2010 influenza virus vacc ine, live, attenuated, for intranasal use Kary Plotts PARISH NURSE.CN Work Phone: [facility] Work Phone: 06-14-2010 varicella virus vaccine Cour tney Hellen PARISH NURSE.CNM Work Phone: [facility] Work Phone: 12-22-2009 human papilloma viru s vaccine, quadrivalent Kary Salgadots PARISH NURSE.CNM Work Phone: [facility] Work Phone: 10-19-2009 human papilloma viru s vaccine,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
[2025-06-03 23:56] LABS: Magnesium 2.1 mg/dL (1.5-2.2)
[2025-06-04] VITALS: BP 128/78; PULSE 71; RESP 17; O2SAT 95
[2025-06-04 00:25] LABS: AST(SGOT) 19 U/L (<=31); Alanine Aminotransfer ALT/SGPT 12 U/L (<=34); Albumin, Serum 4.5 g/dL (3.5-5.0); Alkaline Phosphatase 74 U/L (35-104); Bilirubin, Direct 0.11 mg/dL (0.00-0.30); Globulin 3.0 g/dL (2.2-4.2)
[2025-06-04 00:47] VITALS: BMI 27.5
[2025-06-04 00:49] VITALS: BP 115/73; PULSE 72; RESP 17; TEMP 36.6; O2SAT 97
[2025-06-04] MEDS: Lactated Ringers 1,000 ML 125 ML IV (00:59)
[2025-06-04] MEDS: hydrOXYzine PAM 25 MG Capsule 50 MG PO ×3 (01:15→20:55)
[2025-06-04] MEDS: 0.9% Saline Lock 10 ML Syringe IV ×2 (01:16→20:54)
[2025-06-04 05:00] VITALS: BP 108/61; PULSE 65; RESP 16; TEMP 36.6; O2SAT 99
[2025-06-04 07:47] VITALS: O2SAT 98
[2025-06-04] MEDS: Thiamine Hydrochloride 100 MG Tablet PO (08:38)
--- NOTE | 2025-06-04 08:42 | PN.HOSP_ITS ---
Subjective Subjective CIWA score 5 Objective Data Objective Data Vital Signs: Vital Signs Temp Pulse Resp BP Pulse Ox O2 Del Method 97.9 F 65 16 108/61 98 Room Air 06/04/25 05:00 06/04/25 05:00 06/04/25 05:00 06/04/25 05:00 06/04/25 07:47 06/04/25 07:47 Oxygen Delivery Method Room Air Weight: 160 lb 4.417 oz Body Mass Index (BMI) 27.5 Lab / Micro Data 06/03/25 21:55 06/03/25 21:55 Labs: Laboratory Results - last 24 hr 06/03/25 21:55: WBC 5.9, RBC 4.50, Hgb 13.5, Hct 40.1, MCV 89.1, MCH 30.0, MCHC 33.7, RDW Std Deviation 40.4, RDW Coeff of Maribell 12.4, Plt Count 257, MPV 9.7, Immature Gran % (Auto) 0.300, Neut % (Auto) 52.6, Lymph % (Auto) 36.5, Burleigh % (Auto) 9.5, Eos % (Auto) 0.8, Baso % (Auto) 0.3, Absolute Neuts (auto) 3.1, Absolute Lymphs (auto) 2.16, Nucleated RBC % 0, Sodium 140, Potassium 4.0, Chloride 105, Carbon Dioxide 23.2, Anion Gap 12, BUN 8, Creatinine 0.77, Estim Creat Clear Calc 111.06, Est GFR (MDRD) Non-Af 109, BUN/Creatinine Ratio 10.0, Glucose 90, Calcium 9.3, Phosphorus 3.5, Magnesium 2.1, Total Bilirubin 0.36, Direct Bilirubin 0.11, AST 19, ALT 12, Alkaline Phosphatase 74, Total Protein 7.5, Albumin 4.5, Globulin 3.0, TSH 4.340 H, Free T4 1.10, Ethyl Alcohol < 10.1 06/03/25 22:23: Urine Test Negative, Urine Opiates Screen NEGATIVE, U Buprenorphine Qual NEGATIVE, Ur Oxycodone Screen NEGATIVE, Urine Methadone Screen NEGATIVE, Urine Fentanyl Screen NEGATIVE, Ur Barbiturates Screen NEGATIVE, Ur Phencyclidine Scrn NEGATIVE, Ur Amphetamines Screen NEGATIVE, U Benzodiazepines Scrn NEGATIVE, Urine Cocaine Screen NEGATIVE, U Cannabinoids Screen NEGATIVE Physical Exam Narrative General: Alert, Oriented x3, Cooperative, No apparent distress HEENT: Atraumatic, PERRLA, EOMI, Normocephalic Oral: Moist Mucosa Neck: Supple, No JVD Lungs: Clear to auscultation, Normal air movement, No rhonchi, No wheeze, No rales Cardiovascular: Regular rate, Regular Rhythm, Normal S1, Normal S2, No murmurs Abdomen: Soft, Non Tender, Non-Distended, No Hepato-splenomegaly Extremities: No edema, Capillary Refill Less than 3 Seconds Skin: No rashes, No breakdown Musculoskeletal: No Tenderness to Palpation of Joints or Extremities Neurological: No focal neurological deficits, moves all extremities Psych/Mental Status: Normal Affect, Appropriate Assessment & Plan Assessment/Plan (1) Admitted to alcohol detoxification center: PLAN: Plan 1. Alcohol abuse requesting detox/tobacco abuse – Continue with the alcohol withdrawal protocol – Discussed tobacco cessation – Will have her meet with 180 to determine discharge planning DVT: Ambulation Charges/Coding Visit Charges Inpatient E&M: 02540 Subs Hosp L2
--- NOTE | 2025-06-04 10:27 | ADDICTION ---
Met with patient to complete RAMP assessments. Patient was cooperative and responded appropriately to all questions. Patient reports consuming approximately one liter of alcohol daily. Patient expressed interest in outpatient substance use disorder (INÉS) treatment resources. She currently has a sponsor but acknowledges the need for additional support. Patient demonstrated insight into her addiction and associated behaviors. She was receptive to feedback and open to discussing treatment options.She plans to follow up with either [facility] or [facility] for outpatient treatment.
[2025-06-04 17:42] VITALS: BP 102/58; PULSE 60; RESP 14; TEMP 36.6; O2SAT 97
[2025-06-04 20:46] VITALS: BP 100/68; PULSE 62; RESP 15; TEMP 36.6; O2SAT 98
[2025-06-05 01:10] VITALS: BP 104/62; PULSE 60; RESP 15; TEMP 36.4; O2SAT 97
[2025-06-05 05:19] VITALS: BP 106/70; PULSE 63; RESP 14; TEMP 36.5; O2SAT 98
[2025-06-05] MEDS: hydrOXYzine PAM 25 MG Capsule 50 MG PO ×2 (08:55→20:08)
[2025-06-05] MEDS: Thiamine Hydrochloride 100 MG Tablet PO (08:55)
[2025-06-05 09:07] VITALS: BP 108/61; PULSE 65; RESP 16; TEMP 36.8; O2SAT 97
--- NOTE | 2025-06-05 09:22 | PCM.PN.HOSP ---
Subjective Subjective CIWA score of 6 Objective Data Objective Data Vital Signs: Vital Signs Temp Pulse Resp BP Pulse Ox O2 Del Method 98.3 F 65 16 108/61 97 Room Air 06/05/25 09:07 06/05/25 09:07 06/05/25 09:07 06/05/25 09:07 06/05/25 09:07 06/05/25 09:07 Oxygen Delivery Method Room Air Weight: 160 lb 4.417 oz Body Mass Index (BMI) 27.5 Intake & Output: Intake and Output for Last 24 Hours 06/04/25 06/05/25 06/06/25 03:59 03:59 03:59 Intake Total 1000 / 1000 Balance 1000 / 1000 Lab / Micro Data 06/03/25 21:55 06/03/25 21:55 Physical Exam Narrative General: Alert, Oriented x3, Cooperative, No apparent distress HEENT: Atraumatic, PERRLA, EOMI, Normocephalic Oral: Moist Mucosa Neck: Supple, No JVD Lungs: Clear to auscultation, Normal air movement, No rhonchi, No wheeze, No rales Cardiovascular: Regular rate, Regular Rhythm, Normal S1, Normal S2, No murmurs Abdomen: Soft, Non Tender, Non-Distended, No Hepato-splenomegaly Extremities: No edema, Capillary Refill Less than 3 Seconds Skin: No rashes, No breakdown Musculoskeletal: No Tenderness to Palpation of Joints or Extremities Neurological: No focal neurological deficits, moves all extremities Psych/Mental Status: Normal Affect, Appropriate Assessment & Plan Assessment/Plan (1) Admitted to alcohol detoxification center: PLAN: Plan 1. Alcohol abuse requesting detox/tobacco abuse – Continue with the alcohol withdrawal protocol – Discussed tobacco cessation – Will have her meet with 180 to determine discharge planning DVT: Ambulation Charges/Coding Visit Charges Inpatient E&M: 59693 Subs Hosp L2
[2025-06-05 13:06] VITALS: BP 103/56; PULSE 69; RESP 16; TEMP 36.6; O2SAT 98
[2025-06-05 16:39] VITALS: BP 108/60; PULSE 68; RESP 18; TEMP 36.6; O2SAT 99
[2025-06-05 20:29] VITALS: BP 121/74; PULSE 73; RESP 16; TEMP 36.8; O2SAT 98
[2025-06-06] MEDS: hydrOXYzine PAM 25 MG Capsule 50 MG PO (00:56)
[2025-06-06 02:44] VITALS: BP 99/62; PULSE 55; RESP 16; TEMP 36.4; O2SAT 95
[2025-06-06 08:05] VITALS: O2SAT 100
--- NOTE | 2025-06-06 08:05 | DCINST_ITS ---
Discharge Instructions DC O2, CPAP, BIPAP needs Home O2 Discharge instructions: No Dressing / Incision Discharge Activity: Return to Normal Activity Dressing / Incision Call your doctor if you observe: Fever of 101 or Higher, Shortness of breath, Dizziness, Fainting spells, Swelling in the ankles, Chest pain and Increased palpitations (irregular heartbeat) Follow Up Care Test Results: Test results from this visit will be discussed in further detail at your follow- up appointment, if applicable. Discharge Plan Admission Admit Date/Time: 06/03/25 23:19 Attending Provider: Logan Mcclure Primary Care Provider: Care Physician,No Primary Consulting Providers: Mayra Rahman Discharge Orders/Prescriptions Prescriptions: No Action NK Referrals / Follow Up: Care Physician,No Primary [Primary Care Provider, Medical] Disposition Disposition (needs filled in before D/C Order can be placed): Home, Self Care
[2025-06-06] MEDS: Thiamine Hydrochloride 100 MG Tablet PO (08:16)
[2025-06-06 08:29] VITALS: BP 112/89; PULSE 65; RESP 16; TEMP 36.4; O2SAT 100
--- NOTE | 2025-06-06 14:00 | PCM.DC.SUM ---
Providers Date of Admission: 06/03/25 Primary Care Physician: No Primary Care Phys Reason For Visit: ETOH DETOX Diagnosis Discharge Diagnosis (1) Admitted to alcohol detoxification center: Status: Acute Medications at Discharge Home Medications NK 06/03/25 Hospital Course Operations None Procedures None Summary of Care Provided Minutes Spent on Discharge: 31 Hospital Course: Per HPI: The patient is a 24 y/o F w/ PMHx: Tobacco use, PCOS, Anxiety and Dedpression, Hx Clay's disease, Overweight who presents to the [facility] ED on 06/03/2025 with history of ongoing persistent heavy alcohol abuse with last drink 1.5 hours prior to ED arrival normally drinking approximately 1/5 Gennaro Moreno daily as well as intermittent wine coolers daily reporting that in the past she has stopped abruptly without any withdrawal seizures and has never gone through detox before but is very interested in sobriety and presenting requesting for alcohol detoxification assistance. She currently denies any alcohol withdrawal symptoms. Workup in the ED included T98.2, heart rate 88, BP 137/86, respiratory rate 18, 99% on room air with most recent repeat vitals heart rate 77, BP 131/76, respiratory rate 20, 90% on room air, CBC with WBC 5.9, hemoglobin 13.5, platelet 257, could shift, BMP unremarkable, negative test, ethyl alcohol less than 10.1, UDS negative. Hospital Course: 1. Alcohol abuse requesting detox/tobacco abuse–24-year-old female presented to the hospital requesting detox from alcohol. She drinks approximately 1/5 of Gennaro Moreno every day with occasional wine coolers. She was started on the alcohol withdrawal protocol which she tolerated well. On the day of discharge she had CIWA scores of 3. I did give her the option of staying to complete the third day of phenobarbital however she said that she felt well and would like to go home today. She did express understanding the risk benefits of going home and will plan on following up with either 180 or a new day as an outpatient. She did meet with [facility] but did not want to do any inpatient rehab. Physical Exam Narrative General: Alert, Oriented x3, Cooperative, No apparent distress HEENT: Atraumatic, PERRLA, EOMI, Normocephalic Oral: Moist Mucosa Neck: Supple, No JVD Lungs: Clear to auscultation, Normal air movement, No rhonchi, No wheeze, No rales Cardiovascular: Regular rate, Regular Rhythm, Normal S1, Normal S2, No murmurs Abdomen: Soft, Non Tender, Non-Distended, No Hepato-splenomegaly Extremities: No edema, Capillary Refill Less than 3 Seconds Skin: No rashes, No breakdown Musculoskeletal: No Tenderness to Palpation of Joints or Extremities Neurological: No focal neurological deficits, moves all extremities Psych/Mental Status: Normal Affect, Appropriate Weight / BMI Weight Weight: 160 lb 4.417 oz Body Mass Index (BMI) 27.5 ABG / Lab / Microbiology Data 06/03/25 21:55 06/03/25 21:55 D/C Instructions Call your doctor if you observe: Fever of 101 or Higher, Shortness of breath, Dizziness, Fainting spells, Swelling in the ankles, Chest pain and Increased palpitations (irregular heartbeat) DC O2, CPAP, BIPAP Needs Home O2 Discharge instructions: No Meaningful Use Info Meaningful Use Meaningful Use Diagnoses (Choose all that apply): None applicable Discharge Plan Admission Admit Date/Time: 06/03/25 23:19 Attending Provider: Logan Mcclure Primary Care Provider: Care Physician,No Primary Consulting Providers: Mayra Rahman Discharge Orders/Prescriptions Prescriptions: No Action NK Referrals / Follow Up: Care Physician,No Primary [Primary Care Provider, Medical] Disposition Disposition (needs filled in before D/C Order can be placed): Home, Self Care Charges/Coding Visit Charges Inpatient E&M: 75512 Disch Hosp >30min
== END 2025-06-06 10:57 | disposition home or self-care (01) | DRG 897 ==
LOC: ED 22:10 → MS3 23:37
PROVIDERS: Admitting Provider Family Medicine; Emergency Provider Student in an Organized Health Care Education/Training Program; Visit Provider Family Medicine
DX: F10.139 Alcohol abuse with withdrawal, unspecified (principal); E66.3 Overweight; F17.200 Nicotine dependence, unspecified, uncomplicated; Z68.29 Body mass index [BMI] 29.0-29.9, adult; Y90.0 Blood alcohol level of less than 20 mg/100 ml
CPT/HCPCS: 80048; 80076; 80307; 81025; 82077; 83735; 84100; 84439; 84443; 85025; 93005; 99285; A4216

== ENCOUNTER → 2025-07-03 | Outpatient (CLI) | payer OTHER, SELFPAY | END | disposition home or self-care (01) | LOC: LABSPEC 15:12 | PROVIDERS: Referring Provider Nurse Practitioner Family; Visit Provider Nurse Practitioner Family | DX: Z01.419 Encounter for gynecological examination (general) (routine) without abnormal findings (principal) | CPT/HCPCS: 88175; G0145 ==

== ENCOUNTER → 2025-07-11 | Outpatient (CLI) | payer OTHER, SELFPAY ==
[2025-07-11 17:44] LABS: Free T3 3.0 pg/mL (2.18-3.98)
== END | disposition home or self-care (01) ==
LOC: LAB 14:29
PROVIDERS: Referring Provider Nurse Practitioner Family; Visit Provider Nurse Practitioner Family
DX: E03.9 Hypothyroidism, unspecified (principal)
CPT/HCPCS: 36415; 84439; 84443; 84481; 86376; 86800